=== PATIENT | male | born 1960 | race African-American/Black ===

== ENCOUNTER 2020-11-06 15:41 | Emergency (ER) | payer BC, SELFPAY ==
[2020-11-06 15:52] VITALS: BP 158/95; PULSE 79; RESP 20; TEMP 36.9; O2SAT 98
--- NOTE | 2020-11-06 16:03 | ED.MALEGU ---
HPI - Male Genitourinary General Chief complaint: Abdominal Pain Stated complaint: abd pain Time Seen by Provider: 11/06/20 16:03 Source: patient Mode of arrival: ambulatory Limitations: no limitations History of Present Illness HPI Narrative: Wade Rader is a 60 yo with a PMH of HTN, asthma, with a complaint of dysuria. Is on BP meds but not drinking water because of urination at work. His PCP ordered tests for Monday for bladder and liver; denies present R sided flank pain. Afraid may be due to 2 covid shots he received. Also was constipated but took laxative last night and had a bowel movement that was normal. Related Data Home Medications Medication Instructions Recorded Confirmed Aspir-81 11/06/20 Norvasc 11/06/20 Water Pill 11/06/20 albuterol 11/06/20 amlodipine 11/06/20 potassium 11/06/20 Allergies Allergy/AdvReac Type Severity Reaction Status Date / Time No Known Allergies Allergy Verified 11/06/20 15:46 Review of Systems Review of Systems: Narrative: CONSTITUTIONAL: Denies fever, chills, sweats. EYES: Denies visual changes, redness, discharge. ENT: Denies rhinorrhea, congestion, sore throat, otalgia. CARDIOVASCULAR: Denies chest pain, palpitations, edema. RESPIRATORY: Denies dyspnea, wheezing, cough GASTROINTESTINAL: Denies abdominal pain, nausea, vomiting, diarrhea. GENITOURINARY: Has dysuria, no hematuria, abnormal discharge SKIN: Denies rash or itching. NEUROLOGIC: Denies numbness, or focal weakness. PSYCHIATRIC: Denies anxiety or depression. PMFSH Past Medical History Medical History Asthma HTN (hypertension) Social History Social History (Updated 11/06/20 @ 16:12 by Paloma Carrera CNP) Smoking status: Former smoker Comments At time of signature, I agree with nursing past medical, surgical, social and family history. There is no relevant family history pertinent to the presenting complaint. Exam Narrative: Exam Narrative: GENERAL: This is a well-nourished, well-developed patient, in mild distress. HEAD: normocephalic, atraumatic. EYES: PERRL. Sclera clear/white. Vision is grossly intact. EARS: External ears normal, Hearing grossly intact. NOSE: External nose normal without nasal discharge, nares without redness, no rhinorrhea. THROAT: Mucous membranes moist, NECK: Neck supple, CARDIOVASCULAR: Regular rate and rhythm without murmurs, gallops, or rubs. RESPIRATORY: Clear to auscultation. Breath sounds equal bilaterally. No wheezes, rales, or rhonchi. GASTROINTESTINAL: Abdomen soft, no palpable flank pain SKIN: warm, intact with no suspicious lesions or rash, good texture and turgor. NEURO: awake, alert, and oriented to person, place and time. There were no obvious focal neurologic abnormalities. Steady gait EXTREMITIES: Normal range of motion. BACK: Nontender without deformity Course Course Emergency Course: Patient comes to [facility] with complaints of dysuria he is not drinking much water because of his job and he is having to urinate all the time his PCP is well aware and plans to test with him on Monday in both the PCP and I have told him that he needs to increase his water intake because his ketones in his urine UA was positive for protein and ketones Treating with Cipro for [id number] with PCP on Monday Vital Signs Vital signs: Vital Signs Temperature 98.4 F 11/06/20 15:52 Pulse Rate 79 11/06/20 15:52 Respiratory Rate 20 11/06/20 15:52 Blood Pressure 158/95 H 11/06/20 15:52 Pulse Oximetry 98 11/06/20 15:52 Temperature 98.4 F 11/06/20 16:10 Pulse Rate 79 11/06/20 16:10 Respiratory Rate 20 11/06/20 16:10 Blood Pressure 158/95 H 11/06/20 16:10 Pulse Oximetry 98 11/06/20 16:10 MDM - Male Genitourinary Differential Diagnosis Differential diagnosis: Likely urinary tract infection, urethritis, prostatitis, acute retention of urine and other (Dysuria) La
[2020-11-06 16:10] VITALS: BP 158/95; PULSE 79; RESP 20; TEMP 36.9; O2SAT 98
== END 2020-11-06 16:28 | disposition home or self-care (01) ==
PROVIDERS: Emergency Provider Nurse Practitioner
DX: R30.0 Dysuria (principal); Z87.891 Personal history of nicotine dependence; J45.909 Unspecified asthma, uncomplicated; I10 Essential (primary) hypertension
CPT/HCPCS: 81003; 99203; G0463

== ENCOUNTER 2021-12-04 20:16 | Emergency (ER) | payer OTHER, SELFPAY ==
[2021-12-04 20:25] VITALS: BP 187/93; PULSE 107; RESP 17; TEMP 37.1; O2SAT 99
--- NOTE | 2021-12-04 21:01 | ED.EPISTAXIS ---
HPI - Epistaxis General Chief complaint: Epistaxis Stated complaint: nosebleed Time Seen by Provider: 12/04/21 20:38 History of Present Illness HPI Narrative: 61-year-old male presents to the emergency room for evaluation of epistaxis to the left nare. Patient states he was seen at urgent care at approximately 4:00 this afternoon for left nare epistaxis. Patient states at that time they gave him Afrin, which stopped the nosebleed. Patient states that approximately 830 the nose began bleeding again. Patient states he is on a baby aspirin daily. Patient denies any injury or trauma. Patient states he has not taken his blood pressure medicine this evening because of the nosebleed. Denies any nausea or vomiting. Related Data Home Medications Medication Instructions Recorded Confirmed Aspir-81 11/06/20 Norvasc 11/06/20 Water Pill 11/06/20 albuterol 11/06/20 amlodipine 11/06/20 potassium 11/06/20 Allergies Allergy/AdvReac Type Severity Reaction Status Date / Time No Known Allergies Allergy Verified 11/06/20 15:46 Review of Systems Review of Systems: CONSTITUTIONAL: Denies fever, chills, or sweats. EYES: Denies visual changes, redness, or discharge. ENT: Reports epistaxis left nare CARDIOVASCULAR: Denies chest pain, palpitations, or edema. RESPIRATORY: Denies cough or dyspnea. GASTROINTESTINAL: Denies abdominal pain, nausea, vomiting, or diarrhea. GENITOURINARY: Denies dysuria or hematuria. SKIN: Denies rash or itching. MUSCULOSKELETAL: Denies back pain, joint pain, or myalgia. NEUROLOGIC: Denies headache, numbness, dizziness, or weakness. PSYCHIATRIC: Denies anxiety or depression. PMFSH Past Medical History Medical History Asthma HTN (hypertension) Social History Social History Smoking status: Former smoker Exam Narrative: GENERAL: Well-appearing, well-nourished, and in no acute distress. HEAD: Normocephalic, atraumatic. EYES: PERRLA and EOMI. ENT: Epistaxis controlled in left nare CHEST: Clear to auscultation. No respiratory distress. No wheezes rales or rhonchi HEART: Regular rate and rhythm. No murmur heard. Normal peripheral pulses. EXTREMITIES: Normal range of motion. No edema. SKIN: Warm, dry, no rash. NEURO: No focal deficits. Alert and oriented x3. PSYCH: Normal mood and affect. Course Vital Signs Vital signs: Vital Signs Temperature 37.1 C 12/04/21 20:25 Pulse Rate 107 H 12/04/21 20:25 Respiratory Rate 17 12/04/21 20:25 Blood Pressure 187/93 H 12/04/21 20:25 Pulse Oximetry 99 12/04/21 20:25 Temperature 37.1 C 12/04/21 20:25 Pulse Rate 71 12/04/21 22:18 Respiratory Rate 18 12/04/21 22:18 Blood Pressure 168/96 H 12/04/21 22:18 Pulse Oximetry 98 12/04/21 22:18 MDM - Epistaxis MDM Narrative Medical decision making narrative: 61-year-old male presented to the emergency room for evaluation of epistaxis for the second time today. Patient was already seen at urgent care several hours prior to arrival and was given Afrin. Patient nosebleed stopped after the administration of Afrin. Patient return to the emergency room for epistaxis in his left nare. Patient's bleeding was controlled with direct pressure. Patient was told to blow his nose and Afrin was again administered. Patient has been free of epistaxis since administration of Afrin which was approximately 2100. CBC and coags are within normal limits. Lab Data Result diagrams: 12/04/21 21:39 Labs: Lab Results 12/04/21 12/04/21 Range/Units 21:39 21:39 WBC 6.1 (4.5-10.0) K/mm3 RBC 5.16 (4.6-6.20) M/mm3 Hgb 15.5 (14.0-18.0) g/dL Hct 47.6 (42.0-52.0) % MCV 92.2 (80-100) fl MCH 30.0 (26-34) pg MCHC 32.6 (32-36) g/dl RDW 13.8 (11.5-14.5) % Plt Count 280 (150-375) k/mm3 MPV 9.5 (7.4-10.4) fl Immature Gran % (Aut
[2021-12-04] MEDS: amLODIPine BESYLATE 5 MG TABLET 10 MG PO (21:10)
[2021-12-04] MEDS: OXYMETAZOLINE HCL 0.05% NAS 15 ML BTL (*BKC) 1 SPRAY NASAL (21:11)
[2021-12-04 21:13] VITALS: BP 161/95; PULSE 77; RESP 16; O2SAT 100
[2021-12-04 21:45] LABS: Basophils Absolute Auto 0.1 K/mm3 (0.0-0.1); Basophils Percent Auto 0.8 % (0.2-1.2); Eosinophils Percent Auto 0.7 % (0-4.4); Hematocrit 47.6 % (42.0-52.0); Hemoglobin 15.5 g/dL (14.0-18.0); Immature Granulocyte Absolute 0.01 K/mm3 (0.00-0.031); Immature Granulocyte Percent A 0.2 % (0-0.5); Lymphocytes Absolute Auto 0.68 K/mm3 (0.9-3.2); Lymphocytes Percent Auto 11.2 % (18.3-44.2); Mean Corpuscular HGB Conc 32.6 g/dl (32-36); Mean Corpuscular Volume 92.2 fl (80-100); Mean Platelet Volume 9.5 fl (7.4-10.4); Monocytes Absolute Auto 0.5 K/mm3 (0.1-0.6); Monocytes Percent Auto 7.6 % (2.6-8.5); Neutrophils Absolute Auto 4.8 K/mm3 (1.3-6.7); Neutrophils Percent Auto 79.5 % (45.5-73.1); Platelet Count Result 280 k/mm3 (150-375); Red Blood Count 5.16 M/mm3 (4.6-6.20); Red Cell Distribution Width 13.8 % (11.5-14.5); White Blood Count 6.1 K/mm3 (4.5-10.0)
[2021-12-04 21:54] LABS: INR 1.2; Prothrombin Time 14.4 Seconds (11.1-14.7)
[2021-12-04 21:55] LABS: Partial Thromboplastin Time 31.5 SECONDS (22.3-36.8)
[2021-12-04 22:18] VITALS: BP 168/96; PULSE 71; RESP 18; O2SAT 98
[2021-12-04 23:24] VITALS: BP 170/95; PULSE 77; RESP 18; O2SAT 100
== END 2021-12-04 23:25 | disposition home or self-care (01) ==
PROVIDERS: Emergency Provider Nurse Practitioner Family; PCP Internal Medicine
DX: R04.0 Epistaxis (principal); J45.909 Unspecified asthma, uncomplicated; I10 Essential (primary) hypertension
CPT/HCPCS: 36415; 85025; 85610; 85730; 99283; A9270

== ENCOUNTER 2023-01-09 01:23 | Inpatient (IN) | payer BC, SELFPAY ==
[2023-01-09] VITALS (89 sets, daily range): BP systolic 78–131; BP diastolic 47–111; PULSE 10–143; RESP 17–36; TEMP 36.5–38.2; O2SAT 97–100
--- NOTE | ~2023-01-09 | XR_ITS ---
Portable chest x-ray Comparison: None Clinical History: Shortness of breath Findings: Endotracheal tube and NG tube are in satisfactory positions. There is extensive patchy, ramirez zy airspace disease. No pleural effusions. Cardiomediastinal silhouette is stable. Bones and soft ti ssues are unremarkable. Impression: Extensive airspace consolidation. Correlate for pulmonary edema versus pneumonia. Support tubes, as above. Reviewed, dictated and finalized at location . Impression: Extensive airspace consolidation. Correlate for pulmonary edema versus pneumoni a. Support tubes, as above.
--- NOTE | ~2023-01-09 | CT_ITS ---
CT Scan of the Chest without Contrast: Clinical Indication: Dyspnea Technique: Contiguous sections were acquired throughout the chest without intravenous contrast. Dose reduction technique was used on this scan by utilizing automated exposure control and iterative recon struction technique. The dose-length product (DLP) was 981.84 mGy-cm. Findings: There is no evidence of any significant mediastinal, hilar or axillary lymphadenopathy. Calcified med iastinal and hilar lymph nodes are present. Coronary artery calcifications are present. Endotracheal tube and NG tube are in place. There is no evidence of pleural or pericardial effusion. There is dense extensive dependent consolidation in the lower lobes bilaterally. There is patchy airs pace consolidation throughout the aerated lungs. Images through the upper abdomen reveal no abnormalities. Impression: Extensive dense bilateral lobe consolidation with patchy airspace consolidation in the remainder of t he aerated lungs. Diagnostic considerations include pulmonary edema and atelectasis versus pneumonia. Correlate clinically. Reviewed, dictated and finalized at [facility]. Impression: Extensive dense bilateral lobe consolidation with patchy airspace consolidation in the remainder of the aerated lungs. Diagnostic considerations include pulmo nary edema and atelectasis versus pneumonia. Correlate clinically.
--- NOTE | ~2023-01-09 | XR_ITS ---
Supine portable view of the abdomen Clinical history: NG tube placement Findings: NG tube is in satisfactory position. Bowel gas pattern is nonspecific. No evidence for obst ruction or free air. No abnormal mass lesion or calcification is seen. Osseous structures are intact. Impression: NG tube in satisfactory position. Reviewed, dictated and finalized at location . Impression: NG tube in satisfactory position.
--- NOTE | 2023-01-09 01:34 | ECG_ITS ---
Measurements Intervals [place] Rate: 116 P: [place]: 0 QRS: 145 QRSD: 162 T: 0 QT: 254 QTc: 353 Interpretive Statements ATRIAL FIBRILLATION WITH RAPID VENTRICULAR RESPONSE INTRAVENTRICULAR CONDUCTION DELAY ST-T WAVE ABNORMALITY IN ANTEROLAT/INF LEADS- CONSIDER ISCHEMIA BASELINE ARTIFACT- I, II, III, AVR, AVL, AVF ABNORMAL ECG NO PREVIOUS ECG AVAILABLE FOR COMPARISON Electronically Signed On 01-09-2023 7:03:59 CDT by Guillaume Moctezuma D.O.
[2023-01-09] MEDS: MIDAZOLAM HCL (*CRX) 2 MG/2 ML VIAL 4 MG (01:35)
--- NOTE | 2023-01-09 01:37 | ED.SOB ---
HPI - SOB/Dyspnea General Chief Complaint: Shortness of Breath/Dyspnea Stated Complaint: resp distress Time Seen by Provider: 01/09/23 01:26 Source: EMS Mode of arrival: EMS Limitations: clinical condition History of Present Illness HPI Narrative: 62 years old -[place] male went to his neighbor, knocked on the door telling them that he could not breathe then walked back to his home, EMT arrived, patient was sitting on the couch with agonal breathing then became unresponsive. Intubated, came to the emergency room no family member at the bedside, patient lives alone. According to old records patient have history of hypertension and asthma Related Data Home Medications Medication Instructions Recorded Confirmed Aspir-81 11/06/20 Norvasc 11/06/20 Water Pill 11/06/20 albuterol 11/06/20 amlodipine 11/06/20 potassium 11/06/20 Allergies Allergy/AdvReac Type Severity Reaction Status Date / Time No Known Allergies Allergy Verified 11/06/20 15:46 Review of Systems Review of Systems: ROS unobtainable: Yes unobtainable due to endotracheal tube PMFSH Past Medical History Medical History Asthma HTN (hypertension) Social History Social History Smoking status: Former smoker Exam Narrative: General appearance: Well-developed, well-nourished Skin: Normal color Head: Normocephalic, nontraumatic Eyes: Clear conjunctiva ENT: Oropharynx normal, ears normal, nose normal Neck: Supple, nontender Chest and respiratory: Airway patent, no respiratory distress, no accessory muscle use Heart: Regular rate/rhythm Abdomen: Soft, nontender, no organomegaly, quiet bowel sounds Vascular: Normal peripheral pulses, normal capillary refill. Musculoskeletal: Normal range of motion, nontender back Neurologic: Alert and oriented ?3, [employer] is normal as tested, no gross motor deficit Course Consultations Consultation #1: Dr. Gould, pediatric cns on-call EKG was text Wait for blood work-up, Date: 01/09/23 Time: 01:48 Consultation #2: Dr. Kirkland Date: 01/09/23 Time: 04:21 Consultation #3: Dr. Castro, hospitalist Date: 01/09/23 Time: 04:22 Vital Signs Vital signs: Vital Signs Temperature 36.5 C 01/09/23 01:23 Pulse Rate 101 H 01/09/23 01:23 Respiratory Rate 22 H 01/09/23 01:23 Blood Pressure 131/101 H 01/09/23 01:23 Pulse Oximetry 97 01/09/23 01:23 Oxygen Delivery Mechanical Ventilation 01/09/23 01:23 Temperature 36.9 C 01/09/23 03:15 Pulse Rate 89 01/09/23 04:16 Respiratory Rate 22 H 01/09/23 04:16 Blood Pressure 115/80 01/09/23 04:16 Pulse Oximetry 100 01/09/23 04:16 Oxygen Delivery Mechanical Ventilation 01/09/23 03:23 Fraction of Inspired Oxygen 100 01/09/23 02:03 MDM - SOB/Dyspnea MDM Narrative Medical decision making narrative: Patient came to the emergency room because of shortness of breath, agonal breathing and unresponsiveness, intubated at home prior to arrival to the emergency room. No family member at the bedside, patient lives alone. According to the old records that patient have history of asthma and hypertension. On arrival patient is unresponsive, intubated, blood pressure 131/101, heart rate 101, A-fib with RVR, no fever, respiratory rate 20/min. Physical exam showed poor air entry bilaterally, EKG showed A-fib with RVR, interventricular conduction delay, ST elevation in aVR, diffuse ST depression, global ischemia is a possibility discussed with Dr. Fan who requested to start patient on heparin. And aspirin rectally possible cardiac catheterization in the mo
[2023-01-09] MEDS: PROPOFOL IV EMULSION 100 ML 3.56 MG IV CONT (01:38)
[2023-01-09] MEDS: SODIUM CHLORIDE 0.9% IV 1,000 ML 999 ML IV CONT ×2 (01:43→05:00)
[2023-01-09 01:47] LABS: Alveolar/Arterial O2 Gradient 496.9 mmHg; Base Excess ABG -19.1 mEq/l (+/-2.0); Fractional Inspired Oxygen 100 %; HCO3 ABG 13.5 mEq/l (22.0-26.0); Oxygen Content ABG 22.5 %vol (16.0-22.0); Oxygen Saturation ABG 97.7 % (95.0-100.0); Oxyhemoglobin 96.4 % THb (90.0-100.0); PO2 ABG 155.5 mmHg (80.0-100.0); PO2 FiO2 Ratio Arterial Blood 1.55 %; Total Hemoglobin 16.4 g/dL (12.0-18.0)
[2023-01-09 01:48] LABS: Basophils Absolute Auto 0.1 K/mm3 (0.0-0.1); Basophils Percent Auto 1.1 % (0.2-1.2); Eosinophils Absolute Auto 0.2 K/mm3 (0-0.3); Eosinophils Percent Auto 2.2 % (0-4.4); Hematocrit 54.1 % (42.0-52.0); Immature Granulocyte Absolute 0.62 K/mm3 (0.00-0.031); Immature Granulocyte Percent A 5.8 % (0-0.5); Lymphocytes Absolute Auto 4.77 K/mm3 (0.9-3.2); Lymphocytes Percent Auto 44.7 % (18.3-44.2); Mean Corpuscular HGB Conc 29.6 g/dl (32-36); Mean Corpuscular Volume 101.5 fl (80-100); Monocytes Absolute Auto 0.9 K/mm3 (0.1-0.6); Monocytes Percent Auto 8.1 % (2.6-8.5); Neutrophils Absolute Auto 4.1 K/mm3 (1.3-6.7); Neutrophils Percent Auto 38.1 % (45.5-73.1); Red Blood Count 5.33 M/mm3 (4.6-6.20); Red Cell Distribution Width 13.7 % (11.5-14.5); White Blood Count 10.7 K/mm3 (4.5-10.0)
[2023-01-09 01:48] LABS: Modified Allen's Test Pass; PCO2 ABG 60.6 mmHg (35.0-45.0); Site Drawn RIGHT RADIAL; pH ABG 6.966 (7.350-7.450)
[2023-01-09 01:49] LABS: Device AMBU BAG
[2023-01-09 01:59] LABS: INR 1.2; Prothrombin Time 16.2 Seconds (11.1-14.7)
[2023-01-09 02:00] LABS: Partial Thromboplastin Time 35.7 SECONDS (22.3-36.8)
[2023-01-09 02:01] LABS: Alanine Aminotransferase 167 U/L (6-50); Albumin Level 4.3 g/dL (3.5-5.1); Alkaline Phosphatase 74 U/L (38-126); Anion Gap 28 mmol/L (8-16); Aspartate Amino Transferase 243 U/L (17-59); Bilirubin,Total 0.9 mg/dL (0.2-1.3); Blood Urea Nitrogen 13 mg/dL (9-20); Calcium 8.3 mg/dL (8.4-10.2); Carbon Dioxide 18 mmol/L (22-30); Chloride 98 mmol/L (98-107); Estimated CRCL calculation 51 ml/min; Estimated Glomerular Filt Rate 46; Glucose 267 mg/dL (65-110); Magnesium 2.9 mg/dL (1.6-2.3); Sodium 144 mmol/L (137-145)
[2023-01-09 02:07] LABS: Platelet Estimate Adequate (Adequate); Schistocytes None Seen (NORMAL)
[2023-01-09 02:07] LABS: Amphetamine Screen Urine Negative (Negative); Barbiturate Screen Urine Negative (Negative); Benzodiazepines Screen Urine Negative (Negative); Cannabinoid Screen Urine Negative (Negative); Cocaine Screen Urine Negative (Negative); Methadone Screen Urine Negative (Negative); Opiate Screen Urine Negative (Negative); Phencyclidine Screen Urine Negative (Negative)
--- NOTE | 2023-01-09 02:09 | PC.NURSE ---
Pt bp dropped, EPR notified and new orders being placed.
[2023-01-09] MEDS: MIDAZOLAM 100MG/NS 100ML(*CRX) 100 MG/100 ML BAG IV CONT ×2 (02:12→14:33)
[2023-01-09 02:20] LABS: Lactic Acid Reflex 19.4 mmol/L (0.7-2.0)
[2023-01-09] MEDS: MIDAZOLAM HCL (*CRX) 2 MG/2 ML VIAL 4 MG IV PUSH ×3 (02:21→14:20)
[2023-01-09 02:23] LABS: NT Pro B Type Natriuretic Pept 358 pg/mL (19.9-100); Troponin I 0.069 ng/mL (0.000-0.034)
[2023-01-09] MEDS: FENTANYL 2,500MCG/NS250ML(*CRX 2,500 MCG/250 ML BAG IV CONT (02:31)
[2023-01-09 02:38] LABS: SARS-CoV-2 RNA PCR Negative (Negative)
--- NOTE | 2023-01-09 02:52 | ECG_ITS ---
Measurements Intervals [place] Rate: 123 P: [place]: 0 QRS: 156 QRSD: 157 T: 0 QT: 257 QTc: 369 Interpretive Statements ATRIAL FIBRILLATION WITH RAPID VENTRICULAR RESPONSE VENTRICULAR PREMATURE COMPLEX INTRAVENTRICULAR CONDUCTION DELAY ST-T WAVE ABNORMALITY IN DIFFUSE LEADS- CONSIDER ISCHEMIA ABNORMAL ECG COMPARED TO ECG 01/09/2023 01:33:47 ATRIAL FIBRILLATION NOW PRESENT Electronically Signed On 01-09-2023 7:01:05 CDT by Guillaume Moctezuma D.O.
--- NOTE | 2023-01-09 03:00 | PC.NURSE ---
Pt in CT with this RN, restless and notified paper stripper. DIANE to give 4mg IVP versed. Given at 0300.
--- NOTE | 2023-01-09 03:12 | ECG_ITS ---
Measurements Intervals [place] Rate: 96 P: 78 [place]: 206 QRS: 156 QRSD: 123 T: 63 QT: 374 QTc: 474 Interpretive Statements SINUS RHYTHM FREQUENT VENTRICULAR PREMATURE COMPLEXES INTRAVENTRICULAR CONDUCTION DELAY ST-T WAVE ABNORMALITY IN DIFFUSE LEADS- CONSIDER ISCHEMIA ABNORMAL ECG COMPARED TO ECG 01/09/2023 01:36:05 SINUS RHYTHM NOW PRESENT Electronically Signed On 01-09-2023 6:59:40 CDT by Guillaume Moctezuma D.O.
[2023-01-09] MEDS: PIPERACILLIN/TAZOBACTAM SOD 4.5 GM in SODIUM CHLORIDE 0.9% IV 100 ML 200 ML IVPB (03:14)
[2023-01-09] MEDS: POTASSIUM CHLORIDE INJ 40 MEQ in SODIUM CHLORIDE 0.9% IV 500 ML 130 MEQ IVPB (03:16)
[2023-01-09] MEDS: ASPIRIN 300 MG SUPPOSITORY RECTAL (04:05)
[2023-01-09] MEDS: levoFLOXacin 750 MG/D5W 150 ML 750 MG/150 ML BAG 100 MG IVPB (04:07)
[2023-01-09] MEDS: HEPARIN SOD/D5W 100 UNITS/ML 25,000 UNITS/250 ML BAG 10 UNITS IV CONT (04:13)
--- NOTE | 2023-01-09 04:50 | ECG_ITS ---
Measurements Intervals [place] Rate: 87 P: 75 [place]: 190 QRS: 103 QRSD: 103 T: 55 QT: 383 QTc: 462 Interpretive Statements SINUS RHYTHM RIGHT AXIS DEVIATION BORDERLINE ST-T WAVE ABNORMALITY- INF/LAT LEADS BASELINE ARTIFACT- V5 BORDERLINE ECG COMPARED TO ECG 01/09/2023 03:14:48 ST-T WAVE ABNORMALITY IMPROVED Electronically Signed On 01-09-2023 7:02:51 CDT by Guillaume Moctezuma D.O.
[2023-01-09 04:52] LABS: Reflex Lactic Acid Yes or No Add Lactic
--- NOTE | 2023-01-09 04:57 | PC.NURSE ---
Patients BP is 78/62, ERP notified, VORB to give 1L NS bolus.
[2023-01-09 05:13] LABS: Alveolar/Arterial O2 Gradient 449.2 mmHg; Base Excess ABG -3.5 mEq/l (+/-2.0); Fractional Inspired Oxygen 100 %; HCO3 ABG 23.5 mEq/l (22.0-26.0); Oxygen Content ABG 21.7 %vol (16.0-22.0); Oxygen Saturation ABG 99.3 % (95.0-100.0); Oxyhemoglobin 97.8 % THb (90.0-100.0); PCO2 ABG 49.6 mmHg (35.0-45.0); PO2 ABG 214.2 mmHg (80.0-100.0); PO2 FiO2 Ratio Arterial Blood 2.14 %; Total Hemoglobin 15.5 g/dL (12.0-18.0)
[2023-01-09 05:14] LABS: Arterial Blood Gas PEEP 5 cmH2O; Arterial Blood Gas Vent Mode CMV; Arterial Blood Gas Ventilator rate 20 /MIN; Device VENTILATOR; Modified Allen's Test Pass; Site Drawn RIGHT RADIAL; pH ABG 7.294 (7.350-7.450)
[2023-01-09 05:15] LABS: Arterial Blood Gas Tidal Volume 500 ml
--- NOTE | 2023-01-09 05:20 | PC.NURSE ---
Attempted to call patients , number in chart, no answer so message was left.
--- NOTE | 2023-01-09 05:30 | PC.NURSE ---
0524 Report called to LUCINDA Tomlin. Awaiting for laboratory animal facility supervisor to arrive to take patient.
[2023-01-09] MEDS: VANCOMYCIN 1,250 MG/NS 250 ML 1,250 MG/250 ML BAG 166.67 MG IVPB ×2 (05:37→08:11)
--- NOTE | 2023-01-09 06:02 | PC.NURSE ---
0581 [employer]orer [employer] arrives to transport patient with this RN and respiratory.
--- NOTE | 2023-01-09 06:03 | PM.IMHP ---
H&P: HPI History of Present Illness Date/Time: Date of service 01/09/23 06:03 Chief Complaint: shortness of breath Narrative: 62-year-old patient who apparently experienced shortness of breath and went and knocked on his neighbor's door and called EMS who apparently Found in severe respiratory distress and intubated the patient. upon arrival to the emergency room lactic acid very high 19, severely acidotic. Initial troponin minimally elevated. His EKG showed atrial fibrillation with diffuse ST depressions and AVR elevation consistent with ischemia. x-ray showed pulmonary infiltrates. repeat EKG showed sinus rhythm and then the most recent EKG showed much improvement of ST segments depression but persistent AVR elevation. he was started aspirin in the emergency heparin drip. repeat troponins increased to 20. we decided to bring him here for cardiac catheterization to define coronary anatomy. Review of Systems Review of Systems: ROS unobtainable: Yes unobtainable due to endotracheal tube PMFSH Past Medical History Medical History Asthma HTN (hypertension) Social History Social History Smoking status: Former smoker Meds Home Medications and Allergies Home Medications Medication Instructions Recorded Confirmed Type Aspir-81 11/06/20 History Norvasc 11/06/20 History Water Pill 11/06/20 History albuterol 11/06/20 History amlodipine 11/06/20 History ciprofloxacin HCl 500 mg tablet 500 mg PO Q12H #14 tabs 11/06/20 Rx (Cipro) potassium 11/06/20 History Allergies Allergy/AdvReac Type Severity Reaction Status Date / Time No Known Allergies Allergy Verified 11/06/20 15:46 Vital Signs Vital Signs - 24 hr 01/09/23 01:23 01/09/23 01:38 01/09/23 01:52 Temperature 36.5 C Pulse Rate 101 H 114 H 113 H Respiratory Rate 22 H 23 H 24 H Blood Pressure 131/101 H Pulse Oximetry 97 Oxygen Delivery Mechanical Ventilation Fraction of Inspired Oxygen 01/09/23 01:55 01/09/23 01:32 01/09/23 01:34 Temperature Pulse Rate 131 H 109 H 113 H Respiratory Rate 26 H 26 H 28 H Blood Pressure 131/101 H Pulse Oximetry 98 100 Oxygen Delivery Fraction of Inspired Oxygen 01/09/23 01:45 01/09/23 01:46 01/09/23 02:03 Temperature Pulse Rate 141 H Respiratory Rate 23 H Blood Pressure 129/105 H Pulse Oximetry 100 Oxygen Delivery Mechanical Ventilation Fraction of Inspired Oxygen 100 01/09/23 02:03 01/09/23 01:47 01/09/23 02:00 Temperature Pulse Rate 99 143 H 102 H Respiratory Rate 22 H 22 H 23 H Blood Pressure Pulse Oximetry 97 100 Oxygen Delivery Fraction of Inspired Oxygen 01/09/23 02:02 01/09/23 02:09 01/09/23 02:12 Temperature Pulse Rate 101 H 101 H 98 Respiratory Rate 24 H 24 H 24 H Blood Pressure 88/47 L Pulse Oximetry 99 Oxygen Delivery Fraction of Inspired Oxygen 01/09/23 02:31 01/09/23 02:42 01/09/23 03:12 Temperature Pulse Rate 97 105 H 96 Respiratory Rate 31 H 27 H 24 H Blood Pressure Pulse Oximetry Oxygen Delivery Fraction of Inspired Oxygen 01/09/23 03:12 01/09/23 03:21 01/09/23 02:03 Temperature Pulse Rate 93 99 Respiratory Rate 29 H 23 H Blood Pressure 106/64 Pulse Oximetry 99 Oxygen Delivery Fraction of Inspired Oxygen 01/09/23 02:04 01/09/23 02:06 01/09/23 02:10 Temperature Pulse Rate 99 99 101 H Respiratory Rate 24 H 22 H 25 H Blood Pressure 88/47 L 78/56 L 79/50 L Pulse Oximetry 100 98 99 Oxygen Delivery Fraction of Inspired Oxygen 01/09/23 02:13 01/09/23 02:15 01/09/23 02:24 Temperature Pulse Rate 102 H 101 H 98 Respiratory Rate 30 H 27 H 24 H Blood Pressure 83/60 L 84/63 L Pulse Oximetry 99 100 Oxygen Delivery Fraction of Inspired Oxygen 01/09/23 02:28 01/09/23 02:30 01/09/23 02:31 Temperature Pu
--- NOTE | 2023-01-09 06:14 | WPDMODSED ---
Moderate Sedation Note-Pt Data Patient Data Diagnosis: elevated troponins Present Complaint: shortness of breath Procedure to be performed/Plan: coronary angiogram Allergies Allergy/AdvReac Type Severity Reaction Status Date / Time No Known Allergies Allergy Verified 11/06/20 15:46 Home Medications Medication Instructions Recorded Confirmed Type Aspir-81 11/06/20 History Norvasc 11/06/20 History Water Pill 11/06/20 History albuterol 11/06/20 History amlodipine 11/06/20 History ciprofloxacin HCl 500 mg tablet 500 mg PO Q12H #14 tabs 11/06/20 Rx (Cipro) potassium 11/06/20 History Current Medications: Active Medications Heparin Sodium (Porcine) (Heparin Sodium 5,000 Units/Ml Vial) 4,000 units IV PUSH PRN PRN PRN Reason: aPTT 55 - 70 seconds Heparin Sodium (Porcine) (Heparin Sodium 5,000 Units/Ml Vial) 4,000 units IV PUSH PRN PRN PRN Reason: aPTT less than 55 seconds Propofol (Diprivan) 100 mls @ 0 mls/hr IV CONT .Q0M [facility] Last Infusion: 01/09/23 02:09 Dose: 0 mcg/kg/min, 0 mls/hr Piperacillin Sod/Tazobactam (Sod 4.5 gm/ Sodium Chloride) 100 mls @ 200 mls/hr IVPB Q6H [facility] Last Infusion: 01/09/23 04:06 Dose: Infused Levofloxacin/Dextrose (Levaquin 750 Mg/D5w 150 Ml) 750 mg in 150 mls @ 100 mls/hr IVPB Q24H [facility] Last Infusion: 01/09/23 05:36 Dose: Infused Midazolam HCl (Versed 100 Mg/Ns 100 Ml) 100 mg in 100 mls @ 4 mls/hr IV CONT .Q25H STA; Protocol Stop: 01/10/23 03:06 Last Titration: 01/09/23 04:11 Dose: 4 mg/hr, 4 mls/hr Vancomycin HCl (Vancomycin 1,250 Mg/Ns 250 Ml) 1,250 mg in 250 mls @ 166.667 mls/hr IVPB ONCE ONE Stop: 01/09/23 06:29 Last Admin: 01/09/23 05:37 Dose: 166.67 mls/hr Vancomycin HCl (Vancomycin 1,250 Mg/Ns 250 Ml) 1,250 mg in 250 mls @ 166.667 mls/hr IVPB ONCE ONE Stop: 01/09/23 07:59 Vancomycin HCl (Vancomycin 1,500 Mg/D5w 500 Ml) 1,500 mg in 500 mls @ 250 mls/hr IVPB Q24H KENNY Fentanyl Citrate (Fentanyl 2,500 Mcg/Ns 250 Ml) 2,500 mcg in 250 mls @ 12.5 mls/hr IV CONT .Q20H STA; Protocol Stop: 01/09/23 22:25 Last Titration: 01/09/23 04:12 Dose: 125 mcg/hr, 12.5 mls/hr Heparin Sodium/Dextrose (Heparin Sodium/D5w 100 Units/Ml) 25,000 units in 250 mls @ 10 mls/hr IV CONT .Q24H STA; Protocol Stop: 01/10/23 03:29 Last Admin: 01/09/23 04:13 Dose: 1,000 units/hr, 10 mls/hr Sodium Chloride (Normal Saline Iv) 1,000 mls @ 125 mls/hr IV CONT .Q8H KENNY Sedation/Anesthesia: No previous sedation/anesthesia problems (including family history). [facility] Past Medical History Medical History Asthma HTN (hypertension) Social History Social History Smoking status: Former smoker Mod Sed Physical Exam Physical Exam Pre Procedural Exam: Normal: Appearance, Eyes, Ears, Nose, Neck, Lungs, Heart Size, Heart Rate, Heart Rhythm, Abdomen, Liver, Kidneys, Spleen, Breasts, Genitalia, Extremities and Skin Hours since solid foods: 8 Hours since liquid intake: 8 Mallampati Classification: class 1 ( patient is intubated) Internal Medicine - PN: Obj Da Vital Signs Vital Signs: Vital Signs - 24 hr 01/09/23 01:23 01/09/23 01:38 01/09/23 01:52 Temperature 36.5 C Pulse Rate 101 H 114 H 113 H Respiratory Rate 22 H 23 H 24 H Blood Pressure 131/101 H Pulse Oximetry 97 Oxygen Delivery Mechanical Ventilation Fraction of Inspired Oxygen 01/09/23 01:55 01/09/23 01:32 01/09/23 01:34 Temperature Pulse Rate 131 H 109 H 113 H Respiratory Rate 26 H 26 H 28 H Blood Pressure 131/101 H Pulse Oximetry 98 100 Oxygen Delivery Fraction of Inspired Oxygen 01/09/23 01:45 01/09/23 01:46 01/09/23 02:03 Temperature Pulse Rate 141 H Respiratory Rate 23 H Blood Pressure 129/105 H Pulse Oximetry 100 Oxygen Delivery Mechanical Ventilation Fraction of Inspired Oxygen 100 01/09/23 02:03 01/09/23 01:47 01/09/23
--- NOTE | 2023-01-09 06:16 | WPDCARDPROC ---
Cardiac Cath Procedure Note Date of procedure:: 01/09/23 Performing physician:: Wilner Fan MD date of service 01/09/2023 Indication:: elevated troponins Brief clinical history:: ?62-year-old patient who apparently experienced shortness of breath and went and knocked on his neighbor's door and called EMS who apparently? Found in severe respiratory distress and intubated the patient. ?upon arrival to the emergency room lactic acid very high 19, severely acidotic.? Initial troponin minimally elevated.? His EKG showed atrial fibrillation with diffuse ST depressions and AVR elevation consistent with? ischemia. x-ray showed pulmonary infiltrates. ?repeat EKG showed sinus rhythm and then the most recent EKG showed much improvement of ST segments depression but persistent AVR elevation. he was started aspirin in the emergency heparin drip.? repeat troponins increased to 20. ?we decided to bring him here for cardiac catheterization to define coronary anatomy. Procedure Procedure performed:: patient is getting deep sedation because he is intubated 2-Selective left and right coronary angiogram. 3-Left heart catheterization with measurement of LVEDP and measurement of gradient across aortic valve. 4- LV angiogram. 5-Right common femoral arterial angiogram. 6- selective left common femoral arterial angiogram. 7- insertion of intra-aortic balloon pump for left common femoral artery Sedation/Medication given:: Moderate sedation. Access site:: Right common femoral artery. Estimated blood loss:: 10cc Procedure note:: After informed consent patient was brought in to laborer rags with the was draped and prepped in usual manner. Moderate sedation was given and the right groin was infiltrated using 1% lidocaine. Five Niuean sheath was obtained using micropuncture needle and the modified Seldinger technique. Selective left coronary angiogram was done using JL4 catheter with the tip of the catheter placed in the left main coronary artery. Selective right coronary angiogram was done using JR4 catheter with the tip of the catheter placed to the right coronary artery. After that 5 Niuean pigtail catheter was advanced across the aortic valve into the left ventricle with measurement of LVEDP and measurement of gradient across aortic valve. LV angiogram was done.Right common femoral arterial angiogram was done. Because of high bifurcation of the right common femoral artery left common femoral artery was accessed using micropuncture needle and modified Seldinger technique and 8 Niuean sheath was inserted. after the balloon pump was inserted and secured in place Findings:: 1- left coronary artery is a large artery that divides into large LAD, large circumflex artery. distal left main 99%. ELISEO flow 3 2- left anterior descending artery is a large artery that runs and wraps around the apex. no significant disease 3- leftcircumflex artery is a large artery. gives rise to large OM 1 proximally that has ostial 90%. large OM2 no significant disease and then [place] left circumflex artery in the mid segment 70% after that. 4- right coronary artery is Large and dominant. Proximal 90%. Right to right collaterals which makes me think that this is chronic occlusion. 5- LVEDP was 40mmhg and no gradient across aortic valve. 6- LV angiogram shows inferior wall hypokinesis, estimated ejection fraction 40% 6- opening arterial pressure was 100/60 and closing pressure was 100/70 7- right femoral artery angiogram shows no significant disease in the right common femoral artery. high bifurcation. 8- left common femoral artery angiogram shows no significant disease in left common femoral artery the catheter entered in the left common femoral artery. Conclusion:: Left main, 3 vessel disease. - elevated LVEDP - reduced ejection fraction Assessment and Plan Assessment and plan (1) NSTEMI (non-ST elevated myocardial infarction): Code(s): I21.4 - Non-ST elevation (NSTEMI) my
[2023-01-09 07:15] LABS: Activated Clotting Time 107 SEC (74-137)
--- NOTE | 2023-01-09 07:40 | PC.NURSE ---
This patient, Wade Rader, was admitted to Intensive Care Unit-1. Patient/family oriented to hospital policies and general routines including ID bracelet, bed and alarms, visiting hours, pain management, procedures, bathroom and other care routines, personal items, smoking policy, room service/diet, and visiting hours. Information on how to activate the Rapid Response Team has been discussed. Patient/Family are encouraged to report perceived risks to care and to ask questions if they do not understand what they are told or what they should do.
[2023-01-09 08:17] LABS: Alveolar/Arterial O2 Gradient 284.4 mmHg; Base Excess ABG -3.5 mEq/l (+/-2.0); Fractional Inspired Oxygen 60 %; HCO3 ABG 24.1 mEq/l (22.0-26.0); Oxyhemoglobin 94.3 % THb (90.0-100.0); PCO2 ABG 53.3 mmHg (35.0-45.0); PO2 ABG 84.8 mmHg (80.0-100.0); PO2 FiO2 Ratio Arterial Blood 1.41 %; Total Hemoglobin 16.6 g/dL (12.0-18.0)
[2023-01-09 08:18] LABS: Device VENTILATOR; Site Drawn ARTLINE; pH ABG 7.274 (7.350-7.450)
[2023-01-09 08:20] LABS: Arterial Blood Gas PEEP 5 cmH2O; Arterial Blood Gas Tidal Volume 500 ml; Arterial Blood Gas Vent Mode CMV; Arterial Blood Gas Ventilator rate 20 /MIN
[2023-01-09] MEDS: ALBUTEROL SULFATE NEB 2.5 MG/3 ML INH INHALATION (08:50)
[2023-01-09] MEDS: IPRATROPIUM BR 0.02% INH SOLN 0.5 MG/2.5 ML VIAL INHALATION (08:50)
[2023-01-09 08:58] LABS: Anion Gap 3 mmol/L (8-16); Blood Urea Nitrogen 16 mg/dL (9-20); Calcium 7.3 mg/dL (8.4-10.2); Carbon Dioxide 32 mmol/L (22-30); Chloride 107 mmol/L (98-107); Estimated CRCL calculation 54 ml/min; Estimated Glomerular Filt Rate 50; Glucose 111 mg/dL (65-110); Lactic Acid Reflex 2.7 mmol/L (0.7-2.0); Potassium 4.5 mmol/L (3.4-5.0); Sodium 142 mmol/L (137-145)
--- NOTE | 2023-01-09 09:09 | WPDCNINT ---
Assessment and Plan Assessment and plan (1) Acute respiratory failure: Code(s): J96.00 - Acute respiratory failure, unspecified whether with hypoxia or hypercapnia Status: Acute Assessment and Plan: Acute Respiratory failure secondary to congestive heart failure, ? aspiration pneumonia, asthma Continue full mechanical ventilation support to prevent hypoxemia/hypercarbia and end organ damage. ABG reviewed and will increase rate to 24 and increase PEEP to 8. Currently FiO2 has been weaned down to 50% CT chest reviewed Patient is wheezing on exam. This may be due to pulmonary edema but patient does have history asthma. I will order bronchodilator and a short course of Solu-Medrol CT suggest pneumonia which may be aspiration as patient had altered mental status and was asymptomatic last night. Blood and sputum cultures ordered. Vancomycin cefepime and Flagyl Weaning will depend on improvement in cardiac status Patient received IV fluids initially for treatment of sepsis. In light of congestive heart failure and possible pulmonary edema I will hold further IV fluids. (2) Asthma: Code(s): J45.909 - Unspecified asthma, uncomplicated Status: Acute Assessment and Plan: See above (3) NSTEMI (non-ST elevated myocardial infarction): Code(s): I21.4 - Non-ST elevation (NSTEMI) myocardial infarction Status: Acute Assessment and Plan: Status post cardiac catheterization which showed multivessel coronary disease EF of 40% with inferior wall hypokinesis and LVEDP of 40 Patient had intra-aortic balloon pump placed during cardiac catheterization but the machine malfunction and had to be removed Continue aspirin and heparin infusion Patient is being transferred to [facility] for evaluation for CABG Will defer further evaluation and treatment to the accepting hospital Hold further IV fluids (4) Pneumonia: Qualifiers: Laterality: bilateral Lung location: unspecified part of lung Pneumonia type: due to unspecified organism Qualified Code(s): J18.9 - Pneumonia, unspecified organism Code(s): J18.9 - Pneumonia, unspecified organism Status: Acute Assessment and Plan: See above (5) Pulmonary edema: Code(s): J81.1 - Chronic pulmonary edema Status: Acute Assessment and Plan: See above (6) Electrolyte abnormality: Code(s): E87.8 - Other disorders of electrolyte and fluid balance, not elsewhere classified Status: Acute Assessment and Plan: Potassium has been replaced and repeat level is in normal range (7) Elevated serum creatinine: Code(s): R79.89 - Other specified abnormal findings of blood chemistry Status: Acute Assessment and Plan: Patient presented with creatinine of 1.8 and repeat is 1.7 Baseline unknown patient does have history of hypertension Patient is being transferred to [facility] and I will defer further evaluation and treatment at this time Patient did receive IV fluids in the ER. I will Hold further IV fluids due to congestive heart failure (8) Cardiogenic shock: Code(s): R57.0 - Cardiogenic shock Status: Acute Assessment and Plan: Patient had EF of 40% and LVEDP of 40 during cardiac catheterization IABP was placed the machine malfunction and had to be removed Patient also received fluid in the ER Lactic acid has improved from 19.4 on presentation to 2.7 at this time Pressure is acceptable at this time with map over 90 and patient is not requiring vasopressor. (9) Sepsis: Code(s): A41.9 - Sepsis, unspecified organism Status: Acute Assessment and Plan: Patient presented with elevated lactic acid level and also had evidence of pneumonia on the CT scan He received IV fluids in the ER but further fluids will be held due to congestive heart failure Check procalcitonin level Check sputum and blood cultures Continue vancomycin cefepime and Flagyl to c
[2023-01-09 09:15] LABS: Troponin I > 80.000 ng/mL (0.000-0.034)
[2023-01-09 09:18] LABS: Procalcitonin 1.3 ng/mL
[2023-01-09] MEDS: PANTOPRAZOLE SODIUM IV 40 MG VIAL IV PUSH (09:51)
[2023-01-09] MEDS: methylPREDNISolone SOD SUCC 125 MG VIAL 60 MG IV PUSH (09:51)
[2023-01-09] MEDS: CEFEPIME 1 GM/NS 50 ML 1 GM/50 ML BAG IVPB (09:51)
[2023-01-09] MEDS: metroNIDAZOLE 500 MG/ISO 100ML 500 MG/100 ML BAG 100 MG IVPB (10:22)
[2023-01-09 11:08] LABS: Partial Thromboplastin Time 27.2 SECONDS (22.3-36.8)
[2023-01-09 11:23] LABS: Troponin I > 80.000 ng/mL (0.000-0.034)
[2023-01-09 12:06] LABS: Glucose Point of Care 111 mg/dl (65-105)
--- NOTE | 2023-02-20 12:01 | PM.TDS ---
Transfer Discharge Sum: Prov Provider Date of admission: 01/09/23 07:51 Primary care physician: Tamika Rteana, Admitting clinician: jill fan Attending physician on admission: Jill Fan Consults: 01/09/23 03:44 Consult to Physician Routine Comment: Consulting Provider: Domenic Kirkland Reason for consultation: Pneumonia, acute coronary syndrome, dehydration, Has provider been notified: Yes Attending physician on discharge: Jill Fan Discharging clinician: Jill Fan Anticipated date of transfer: 01/09/23 Receiving physician/facility: [facility] DS: Admitting Diagnosis Discharge Date 01/09/23 Admitting Diagnosis NSTEMI DS: Discharge Diagnosis Discharge Diagnosis (1) Acute respiratory failure: Code(s): J96.00 - Acute respiratory failure, unspecified whether with hypoxia or hypercapnia Status: Acute Assessment and Plan: Secondary to LV dysfunction and severe 3 vessel disease and left main disease. Continue respiratory support on ventilator. (2) Pulmonary edema: Code(s): J81.1 - Chronic pulmonary edema Status: Acute Assessment and Plan: Secondary to LV dysfunction and severe 3 vessel disease and left main disease. Continue respiratory support on ventilator. (3) NSTEMI (non-ST elevated myocardial infarction): Code(s): I21.4 - Non-ST elevation (NSTEMI) myocardial infarction Status: Acute Assessment and Plan: patient underwent cardiac catheterization that showed critical left main disease and three-vessel disease. Underwent intra-aortic balloon pump insertion which had to be removed because pump console stopped working and no replacement available. We will continue heparin. Discussed the case with CT surgery at [facility] and agreed to receive the patient. Transfer Discharge Sum: Med Medications Active and Home Medications: Home Medications albuterol sulfate 90 mcg/actuation aerosol inhaler 1 puff inhalation Q4H PRN Shortness Of Breath Or Wheezing 01/09/23 [History Confirmed 01/09/23] amlodipine 10 mg tablet 10 mg PO DAILY 01/09/23 [History Confirmed 01/09/23] aspirin 81 mg tablet 81 mg PO DAILY 01/09/23 [History Confirmed 01/09/23] olmesartan 40 mg-hydrochlorothiazide 25 mg tablet 1 tablet PO DAILY 01/09/23 [History Confirmed 01/09/23] omeprazole 20 mg capsule,delayed release 20 mg PO DAILY 01/09/23 [History Confirmed 01/09/23] potassium chloride 20 mEq tablet,extended release(part/cryst) (Klor-Con M) 20 meq PO DAILY 01/09/23 [History Confirmed 01/09/23] Transfer Discharge Sum: Hosp Hospital Course Hospital course: Wade Rader is a 63 year old male Who presented to [facility] severe respiratory distress. Apparently was intubated in the field and then transferred here to the emergency room. EKG showed ST depression and AVR elevation. Elevated troponins. Consistent with NSTEMI. Took the patient to lab nurse were found to have critical left main and three-vessel disease. Balloon pump was inserted. Patient transferred to ICU. Balloon pump console stopped working and had to remove the balloon pump. Patient was on ventilator. Discussed with CT surgery who agreed to receive the patient to get CABG. Time Spent with Patient Time attestation: Total time spent providing and/or coordinating transfer services: 80 Minutes Exam Const: Other: no acute distress HENMT: Face/Nose/Sinus: Normal nares present Eyes: Sclera: sclerae normal Neck: Thyroid: thyroid normal Resp: Other: crackles Cardio: Rate: regular rate Rhythm: regular rhythm GI: GI Palp: Yes Soft to palpation : Other: Elise catheter Skin: General skin exam: normal color Neuro: Other: intubated and sedated Extrem: Other: no edema Psych: Other: could not be assessed DS: Data Data Completed and Pending Completed studies during hospitalization: cardiac
== END 2023-01-09 14:43 | disposition short-term general hospital (02) | DRG 853 ==
LOC: ANHED 02:57 → ANHOUTPT 05:25 → ANHICU 07:53
PROVIDERS: Internal Medicine; Admitting Provider Internal Medicine; Emergency Provider Emergency Medicine; PCP Internal Medicine; Visit Provider Internal Medicine Cardiovascular Disease
PROC: 4A023N7 Measurement of Cardiac Sampling and Pressure, Left Heart, Percutaneous Approach (ICD-10-PCS; CPT 93452; principal; 2023-01-09 05:40)
PROC: 5A02210 Assistance with Cardiac Output using Balloon Pump, Continuous (ICD-10-PCS; 2023-01-09 05:40)
DX: A41.9 Sepsis, unspecified organism (principal); I21.4 Non-ST elevation (NSTEMI) myocardial infarction; J69.0 Pneumonitis due to inhalation of food and vomit; J18.9 Pneumonia, unspecified organism; J96.00 Acute respiratory failure, unspecified whether with hypoxia or hypercapnia; R57.0 Cardiogenic shock; E86.0 Dehydration; E87.6 Hypokalemia; I10 Essential (primary) hypertension; I48.91 Unspecified atrial fibrillation; J45.909 Unspecified asthma, uncomplicated; R94.31 Abnormal electrocardiogram [ECG] [EKG]; E87.8 Other disorders of electrolyte and fluid balance, not elsewhere classified
CPT/HCPCS: 33967; 36415; 36600; 51702; 71250; 80048; 80053; 80307; 82805; 82948; 83605; 83735; 83880; 84145; 84443; 84484; 85025; 85610; 85730; 87040; 87081; 87635; 93005; 93458; 94640; 96365; 96367; 96375; 96376; 99285; A9270; C1887; C1894; C9113; J0692; J1644; J1836; J1956; J2250; J2543; J2704; J2930; J3010; J3370; J3480; J7030; J7040

== ENCOUNTER 2024-04-02 20:27 | Emergency (ER) | payer BC, SELFPAY ==
--- NOTE | ~2024-04-02 | XR_ITS ---
Clinical Indication: Hypertension PA and lateral views of the chest: Comparison: 01/09/2023 Findings: Calcified right basilar granuloma noted. The lungs are otherwise clear, without evidence of focal consolidation or pleural effusion. Cardiomediastinal silhouette is stable, status post CABG. Bones and soft tissues are unremarkable. Impression: No acute abnormality. Status post CABG. Reviewed, dictated and finalized at location . Impression: No acute abnormality. Status post CABG.
--- NOTE | 2024-04-02 21:20 | PC.NURSE ---
2119-CALLED FOR PATIENT TO TRIAGE. NO ANSWER X 1.
[2024-04-02 21:37] VITALS: BP 169/87; PULSE 87; RESP 20; TEMP 37.2; O2SAT 100
[2024-04-02 23:56] VITALS: BP 162/102; PULSE 77; RESP 20; O2SAT 99
[2024-04-03 01:25] VITALS: PULSE 72
[2024-04-03 01:29] VITALS: BP 150/80; PULSE 93; RESP 15; O2SAT 99
[2024-04-03 01:31] LABS: Basophils Percent Auto 0.7 % (0.2-1.2); Eosinophils Percent Auto 0.2 % (0-4.4); Hematocrit 42.3 % (42.0-52.0); Hemoglobin 13.2 g/dL (14.0-18.0); Immature Granulocyte Absolute 0.02 K/mm3 (0.00-0.031); Immature Granulocyte Percent A 0.3 % (0-0.5); Lymphocytes Absolute Auto 0.86 K/mm3 (0.9-3.2); Lymphocytes Percent Auto 14.8 % (18.3-44.2); Mean Corpuscular HGB Conc 31.2 g/dl (32-36); Mean Corpuscular Hemoglobin 25.4 pg (26-34); Mean Corpuscular Volume 81.5 fl (80-100); Mean Platelet Volume 10.2 fl (7.4-10.4); Monocytes Absolute Auto 0.5 K/mm3 (0.1-0.6); Monocytes Percent Auto 8.8 % (2.6-8.5); Neutrophils Absolute Auto 4.4 K/mm3 (1.3-6.7); Neutrophils Percent Auto 75.2 % (45.5-73.1); Platelet Count Result 301 k/mm3 (150-375); Red Blood Count 5.19 M/mm3 (4.6-6.20); Red Cell Distribution Width 17.3 % (11.5-14.5); White Blood Count 5.8 K/mm3 (4.5-10.0)
[2024-04-03 01:41] LABS: Alanine Aminotransferase 53 U/L (6-50); Albumin Level 4.4 g/dL (3.5-5.1); Alkaline Phosphatase 96 U/L (38-126); Anion Gap 9 mmol/L (4-12); Aspartate Amino Transferase 50 U/L (17-59); Bilirubin,Total 1.4 mg/dL (0.2-1.3); Blood Urea Nitrogen 12 mg/dL (9-20); Calcium 8.7 mg/dL (8.4-10.2); Carbon Dioxide 30 mmol/L (22-30); Chloride 102 mmol/L (98-107); Estimated Glomerular Filt Rate > 60; Glucose 127 mg/dL (65-110); Potassium 3.7 mmol/L (3.4-5.0); Sodium 141 mmol/L (137-145)
[2024-04-03 01:43] LABS: INR 1.2; Partial Thromboplastin Time 33.8 Seconds (22.3-36.8); Prothrombin Time 15.4 Seconds (11.1-14.7)
[2024-04-03 02:25] LABS: NT Pro B Type Natriuretic Pept 1040 pg/mL (19.9-100); Troponin I 0.045 ng/mL (0.000-0.034)
--- NOTE | 2024-04-03 02:44 | ED.RECABL ---
HPI - Recheck/Abnormal Lab/Rx General Chief Complaint: Recheck/Abnormal Lab/Rx Stated Complaint: high blood pressure Time Seen by Provider: 04/03/24 00:38 Source: patient and family Mode of arrival: ambulatory Limitations: no limitations History of Present Illness HPI narrative: Patient is a 64-year-old male who presents to the ER after having a high blood pressure reading outside of the hospital. He reports he was feeling a little lightheaded and had a mild headache so he tried to go to Urgent Care but they were closed, so he walked across the street to the fire department so they could give do a BP reading. When patient arrived at critical access hospital department they told him his blood pressure was 200/100. He reports he had not taken his blood pressure medication yet today. The fire department advised him to either follow-up with his doctor or come to the ER. Patient drove himself to the ER for evaluation. He denies any chest pain, shortness a breast, other signs or symptoms of illness. Patient also reports his symptoms of lightheadedness and is slight headache have completely resolved. He usually takes his blood pressure medication in the morning but he did not take it this morning so he took it once he arrived in the ER around 5:00 p.m. Related Data Home Medications Medication Instructions Recorded Confirmed albuterol sulfate 90 mcg/actuation 1 puff inhalation Q4H PRN 01/09/23 03/21/24 aerosol inhaler Shortness Of Breath Or Wheezing amlodipine 10 mg tablet 10 mg PO DAILY 01/09/23 03/21/24 aspirin 81 mg tablet 81 mg PO DAILY 01/09/23 03/21/24 omeprazole 20 mg capsule,delayed 20 mg PO DAILY 01/09/23 03/21/24 release potassium chloride 20 mEq 20 meq PO DAILY 01/09/23 03/21/24 tablet,extended release(part/cryst) (Klor-Con M) budesonide-formoterol HFA 160 1 puff inhalation DAILY 03/21/24 03/21/24 mcg-4.5 mcg/actuation aerosol inhaler (Symbicort) metoprolol succinate 25 mg 25 mg PO HS 03/21/24 03/21/24 tablet,extended release 24 hr Allergies Allergy/AdvReac Type Severity Reaction Status Date / Time No Known Allergies Allergy Verified 04/02/24 21:44 Review of Systems Review of Systems: All systems reviewed & are unremarkable except as noted in HPI and below PMFSH Past Medical History Medical History Asthma HTN (hypertension) MISHEL (obstructive sleep apnea) Social History Social History Smoking status: Never smoker Alcohol intake: never Substance use: never Substance use type: does not use Living arrangements: with family Spiritual care concerns: No Exam Narrative: GENERAL: Well appearing, well-nourished, non-toxic, in no acute distress. HEAD: Normocephalic, atraumatic. NECK: Supple. No adenopathy, no masses. RESPIRATORY: Airway patent, respirations nonlabored. Clear to auscultation bilaterally, no rales, rhonchi, wheezing. CARDIOVASCULAR: Regular rate and rhythm without murmurs, rubs, or gallops. Peripheral pulses 2+ and equal bilaterally. Mild, non-pitting lower extremity edema. ABDOMINAL: Soft, nontender, nondistended, no hepatosplenomegaly. Normoactive BS. MUSCULOSKELETAL: Moves all extremities. Strength/ROM intact without gross deformities. SKIN: Warm, dry, normal color. No rashes. NEURO: A&O X3. Speech clear. Cranial nerves II-XII grossly intact. Steady gait. No ataxic movements. PSYCHIATRIC: Appropriate mood and affect. Normal interaction. Course Vital Signs Vital signs: Vital Signs Temperature 37.2 C 04/02/24 21:37 Pulse Rate 87 04/02/24 21:37 Respiratory Rate 20 04/02/24 21:37 Blood Pressure 169/87 H 04/02/24 21:37 Pulse Oximetry 100 04/02/24 21:37 Oxygen Delivery Room Air 04/02/24 21:37 Temperature 37.2 C 04/02/24 21:37 Pulse Rate 72 04/03/24 02:47 Respiratory Rate 13 04/03/24 02:47 Blood Pressure 132/78 04/03/24 02:47 Puls
[2024-04-03 02:47] VITALS: BP 132/78; PULSE 72; RESP 13; O2SAT 100
--- NOTE | 2024-04-03 03:02 | ECG_ITS ---
Test Date: 2024-04-03 03:11:34 Measurements Intervals Gypsy Rate: 67 P: 61 WA: 226 QRS: 80 QRSD: 113 T: -88 QT: 410 QTc: 436 Interpretive Statements SINUS RHYTHM WITH FIRST DEGREE AV BLOCK DELAYED PRECORDIAL R/S TRANSITION LEFT VENTRICULAR HYPERTROPHY WITH ST-T CHANGE ST-T WAVE ABNORMALITY IN INFERIOR LEADS- CONSIDER ISCHEMIA PEAKED T WAVES, CONSIDER HYPERKALEMIA BASELINE ARTIFACT- I, II, AVR, AVL ABNORMAL ECG No previous ECG available for comparison Electronically Signed On 04-03-2024 06:25:00 CDT by Guillaume Moctezuma D.O.
== END 2024-04-03 03:47 | disposition left against medical advice (07) ==
PROVIDERS: Emergency Medicine; Emergency Provider Registered Nurse; PCP Internal Medicine
DX: R94.31 Abnormal electrocardiogram [ECG] [EKG] (principal); I44.0 Atrioventricular block, first degree; I51.7 Cardiomegaly; R79.89 Other specified abnormal findings of blood chemistry; I10 Essential (primary) hypertension; J45.909 Unspecified asthma, uncomplicated; G47.33 Obstructive sleep apnea (adult) (pediatric); Z79.82 Long term (current) use of aspirin; Z79.899 Other long term (current) drug therapy
CPT/HCPCS: 36415; 71046; 80053; 83880; 84484; 85025; 85610; 85730; 93005; 99284

== ENCOUNTER 2024-04-17 02:09 | Day surgery (SDC) | payer BC, SELFPAY ==
[2024-03-21 15:19] VITALS: BMI 32.5
--- NOTE | 2024-04-15 10:08 | SUR.PREOP ---
Pt wanted Suprep/Goylete bowel prep. Order submitted to pt's pharmacy.
[2024-04-17 10:00] VITALS: BMI 32.9
--- NOTE | 2024-04-17 10:00 | WPDANESEPPF ---
Anes - Initial Pre Proc Eval Procedure: Operation Date: 04/17/24 11:00 Proposed Procedures p Screening Colonoscopy - Kike Loera MD Date/Time: 04/17/24 10:00 Surgeon: Kike Loera MD Pre Op Diagnosis: Neoplasm Screening Patient Data Age: 64 Gender: M Height: 1.75 m Weight: 100 kg Allergies Allergy/AdvReac Type Severity Reaction Status Date / Time No Known Allergies Allergy Verified 04/17/24 09:57 Home Medications Medication Instructions Recorded Confirmed Type albuterol sulfate 90 mcg/actuation 1 puff inhalation Q4H PRN 01/09/23 03/21/24 History aerosol inhaler Shortness Of Breath Or Wheezing amlodipine 10 mg tablet 10 mg PO DAILY 01/09/23 03/21/24 History aspirin 81 mg tablet 81 mg PO DAILY 01/09/23 03/21/24 History omeprazole 20 mg capsule,delayed 20 mg PO DAILY 01/09/23 03/21/24 History release potassium chloride 20 mEq 20 meq PO DAILY 01/09/23 03/21/24 History tablet,extended release(part/cryst) (Klor-Con M) budesonide-formoterol HFA 160 1 puff inhalation DAILY 03/21/24 03/21/24 History mcg-4.5 mcg/actuation aerosol inhaler (Symbicort) metoprolol succinate 25 mg 25 mg PO HS 03/21/24 03/21/24 History tablet,extended release 24 hr sodium,potassium,mag sulfates 17.5 See Rx Instructions .Route 04/15/24 Rx gram-3.13 gram-1.6 gram oral soln .COMPLEX #1 mL (Suprep Bowel Prep Kit) Patient hx anesthesia problems: none Family hx anesthesia problems: none Results Review: All pre-operative results and documents have been reviewed as part of the pre-operative evaluation. [facility] Past Medical History Medical History Asthma HTN (hypertension) MISHEL (obstructive sleep apnea) Social History Social History Smoking status: Never smoker Alcohol intake: never Substance use: never Substance use type: does not use Living arrangements: with family Spiritual care concerns: No Anes - Eval Final PreProcedure Day of Procedure 04/17/24 10:00 Patient weight: obese Heart: regular rate and rhythm Lungs: clear to auscultation Airway: Mallampati scale class II Neurological: alert and oriented Last oral intake: >/= 8 hours ASA classification: III Emergent: no Anesthetic plan: proceed Anesthesia type and monitoring: general GIVS and standard monitoring Results Review: All pre-operative results and documents have been reviewed as part of the pre-operative evaluation. Informed Consent: The patient's anesthetic plan and its attendant risks and benefits were discussed with the patient/family/POA. Questions were solicited and answers provided to the satisfaction of the patient/family/POA.
[2024-04-17 10:03] VITALS: BP 149/78; PULSE 65; RESP 18; TEMP 36.2; O2SAT 100
[2024-04-17] MEDS: LACTATED RINGERS 1,000 ML 150 ML IV CONT (10:04)
--- NOTE | 2024-04-17 10:53 | PM.HPGS ---
History of Present Illness History of Present Illness Consent: Risks, benefits, and alternatives have been discussed and questions answered. Patient agrees to proceed with procedure. Chief complaint: Neoplasm Screening Narrative: Wade Rader is a 64 year old male here for screening colonoscopy, last one ~ 5 years ago Review of Systems Review of Systems: All systems reviewed & are unremarkable except as noted in HPI and below PMFSH Past Medical History Medical History (Updated 04/17/24 @ 10:55 by Kike Loera MD) Asthma Colon cancer screening HTN (hypertension) MISHEL (obstructive sleep apnea) Social History Social History Smoking status: Never smoker Alcohol intake: never Substance use: never Substance use type: does not use Living arrangements: with family Spiritual care concerns: No Meds Home Medications and Allergies Home Medications Medication Instructions Recorded Confirmed Type albuterol sulfate 90 mcg/actuation 1 puff inhalation Q4H PRN 01/09/23 04/17/24 History aerosol inhaler Shortness Of Breath Or Wheezing amlodipine 10 mg tablet 10 mg PO DAILY 01/09/23 04/17/24 History aspirin 81 mg tablet 81 mg PO DAILY 01/09/23 04/17/24 History omeprazole 20 mg capsule,delayed 20 mg PO DAILY 01/09/23 04/17/24 History release potassium chloride 20 mEq 20 meq PO DAILY 01/09/23 04/17/24 History tablet,extended release(part/cryst) (Klor-Con M) budesonide-formoterol HFA 160 1 puff inhalation DAILY 03/21/24 04/17/24 History mcg-4.5 mcg/actuation aerosol inhaler (Symbicort) metoprolol succinate 25 mg 25 mg PO HS 03/21/24 04/17/24 History tablet,extended release 24 hr Allergies Allergy/AdvReac Type Severity Reaction Status Date / Time No Known Allergies Allergy Verified 04/17/24 09:57 Vital Signs Vital Signs - 24 hr 04/17/24 10:03 Temperature 97.2 F L Pulse Rate 65 Respiratory Rate 18 Blood Pressure 149/78 H Pulse Oximetry 100 Oxygen Delivery Room Air Exam Const: General: comfortable and no acute distress HENMT: Face/Nose/Sinus: Normal nares present Eyes: General: appearance normal, both eyes and all related structures Neck: Neck: no JVD Resp: Auscultation: clear to auscultation bilaterally Cardio: Rate: regular rate Rhythm: regular rhythm GI: Inspection: non-distended GI Palp: Yes Soft to palpation Skin: General skin exam: normal color Neuro: General: gait normal Speech: normal speech Extrem: General: normal to inspection Psych: Mental Status: mental status grossly normal Assessment and Plan Assessment and plan (1) Colon cancer screening: Code(s): Z12.11 - Encounter for screening for malignant neoplasm of colon Status: Acute Assessment and Plan: colonoscopy
[2024-04-17 11:18] VITALS: BP 99/42; PULSE 57; RESP 18; O2SAT 100
[2024-04-17 11:28] VITALS: BP 107/46; PULSE 62; RESP 20; O2SAT 100
[2024-04-17 11:38] VITALS: BP 106/65; PULSE 68; RESP 20; O2SAT 100
== END 2024-04-17 11:52 | disposition home or self-care (01) ==
PROVIDERS: PCP Internal Medicine; Visit Provider Internal Medicine Gastroenterology
PROC: 0DJD8ZZ Inspection of Lower Intestinal Tract, Via Natural or Artificial Opening Endoscopic (ICD-10-PCS; CPT 45378; principal; 2024-04-17 11:00)
DX: Z12.11 Encounter for screening for malignant neoplasm of colon (principal); K63.5 Polyp of colon; K64.8 Other hemorrhoids; K57.30 Diverticulosis of large intestine without perforation or abscess without bleeding; J45.909 Unspecified asthma, uncomplicated; I10 Essential (primary) hypertension; G47.33 Obstructive sleep apnea (adult) (pediatric); E66.9 Obesity, unspecified; Z68.32 Body mass index [BMI] 32.0-32.9, adult; Z79.51 Long term (current) use of inhaled steroids; Z79.82 Long term (current) use of aspirin
CPT/HCPCS: 45385; 88305; J2003; J2704; J7120

== ENCOUNTER 2025-07-08 13:04 | Outpatient (CLI) | payer BC, SELFPAY ==
--- OUTSIDE RECORDS SUMMARY | 2025-07-07 11:00 | XMS_ITS | Encounter Summary ---
Author Organization [facility] Healthcare Address [address] [place] [address] Care Team Providers Care Sharepoint Developer Name Role Phone Tamika Retana MD Primary Care Provider [phone] Darrick Goodwin MD Unavailable [phone] Wilner Fan MD Unavailable [phone] Reason for Visit * Reason Comments Cold Symptoms c/o wheezing, cough, sob x today. pt has a hx of asthma Encounter Details Date Type Department Care Team (Late st Contact Info) Description 07/07/2025 11:00 AM [employer] Office Visit [facility] [address] [place] [id number] Viri Watson MD [address] [place] [address] Acute bronchitis with asthma with acute exacerbation (Primary Dx); Acute cough; Wheezing Social History Tobacco Use Types Packs/Day Years Used Date Smoking Tobacco: Never Smokeless Tobacco: Never Alcohol Use Standard Drinks/Week Comments Never 0 (1 standard drink = 0.6 oz pur e alcohol) OASIS D0700: Social Isolation Answer Da te Recorded Frequency of experiencing loneliness or isolatio n Never 01/22/2023 Social Connection and Isolation Panel Answer Date Recorded In a typical week, how many times do you talk on the phone with family, friends, or neighbors? More than three times a week 01/12/2023 How often do you get togethe r with friends or relatives? More than three times a week 01/12/2023 Attends [employer] Not on file 01/12 Active Member of Clubs or Organizations Not on f ile 01/12/2023 Attends Club or Organization Meetings Not on cherry e 01/12/2023 Are you , , di vorced, , never , or living with a partner? 01/12/2023 Overall Financial Resource Strain (CARDIA) Answe r Date Recorded How hard is it for you to pa y for the very basics like food, housing, medical care, and heating? Not hard at all 01/12/2023 PHQ-2 Answer Date Recorded PHQ-2 Total Score (If total score is 3 or more points, staff should administer the PHQ-9) 0 04/03/2025 Hunger Vital Sign Answer Date Recorded Within the past 12 months, y ou worried that your food would run out before you got the money to buy more. Never true 01/13/20 23 Within the past 12 months, t he food you bought just didn't last and you didn't have money to get more. Never true 01/12/2023 PRAPARE - Transportation Answer Date Re corded In the past 12 months, has l ack of transportation kept you from medical appointments or from getting medications? No 12/2022 In the past 12 months, has l ack of transportation kept you from meetings, work, or from getting things needed for daily living? No 01/12/2023 Housing Stability Vital Sign Answer Raymond e Recorded In the last 12 months, was t here a time when you were not able to pay the mortgage or rent on time? No 01/12/2023 Number of Places Lived in the Last Year Not on f ile 01/12/2023 In the last 12 months, was t here a time when you did not have a steady place to sleep or slept in a intermediate (including now)? No 01/12/2023 AUDIT-C Answer Date Recorded Q1: How often do you have a drink containing alcohol? Never 04/03/2025 Q2: How many drinks containi ng alcohol do you have on a typical day when you are drinking? Patient does not drink Q3: How often do you have si x or more drinks on one occasion? Never 04/03/2025 Personal Safety Answer Date Recorded Have you ever been in or are you currently in a harmful physical or emotional relationship or is someone making you feel afraid or unsafe? Denies 01/13/2023 Sex and Gender Information Value Date Recorded Sex Assigned at Not on file Legal Sex Male 9:16 AM [employer] Gender Identity Not on file Sexual Orientation Not on file documented as of this encounter Last Filed Vital Signs Vital Sign Reading Time Taken Comments Blood Pressure - - Pulse 80 07/07/2025 11:05 AM [employer] Temperature 36.6 C (97.8 F) 07/07/2025 11:05 AM [employer]ER Respiratory Rate 20 07/07/2025 11:05 AM [employer]ER Oxygen Saturation 98% 07/07/2025 11:05 AM [employer]ER Inhaled Oxygen Concentration - - Weight 105.2 kg (232 lb) 07/07/2025 11:05 AM [employer] Height 175.3 cm (5' 9) 07/07/2025 11:05 AM [employer]ER Body Mass Index 34.26 07/07/2025 11:05 AM [employer]ER documented in this encounter Patient Instructions * Patient Instructions* Viri Watson MD - 07/07/2025 11:00 AM [employer] Use Prednisone as advised start tomorrow follow the direction on the package, you have diabetes monitor for blood sugar as it can raise your Blood sugar temporarily. Albuterol MDI as needed for sob and wheezing as needed Check x ray today as advised in the hospital and wait for result, we will call you with the result and we advise you on any change in treatment started today. Disposition Treatment plan including expectations, follow up, and return precautions discussed with patient/parent, verbalizes understanding. Medication dosage, use, and potential adverse reactions discussed with patient/parent. Advised to follow up with PCP if symptoms do not resolve as expected or sooner if condition worsens. Signs/symptoms warranting ER evaluation reviewed. Patient and/or guardian was given an opportunity to ask questions, questions answered. [employer] documented in this encounter Ordered Prescriptions Prescription Sig Dispense Quantity Refills Last Filled Start Date End Date albuterol HFA (PROVENTIL HFA,VENTOLIN HFA,PROAIR HFA) 90 mcg/actuation inhalerIndications :Acute bronchitis with asthma with acute exacerbation Inhale 2 puffs every 4 (four) hours as needed for wheezing or shortness of breath 6.7 each 1 07/07/2025 predniSONE (DELTASONE) 10 mg tabletIndications: Acute bronchitis with asthma with acute exacerbation Take 3 tabs days 1 & 2, 2 tabs days 3 & 4, 1 tab days 5-7. 13 tablet 07/07/2025 documented in this encounter Progress Notes * Viri Watson MD - 07/07/2025 11:00 AM CST Images from the original note were not included. [facility] Visit Subjective/Objective Patient ID: Wade Rader is a 65 y.o. male. Chief Complaint Cold Symptoms ( c/o wheezing, cough, sob x today. pt has a hx of asthma) HPI Patient with significant health conditions, asthma HTN, goes without using albuterol for yrs. here with productive cough, nasal congestion, chest congestion wheezing, sob could not sleep last night, took to ER yesterday diagnosed with FLU Denies fever, chills, nausea, vomiting, diarrhea, drooling, swollen neck glands, earache, headache,difficulty swallowing, chest pain. Denies GERD symptoms Taking OTC cold and cough medication without much relief Patient is well-appearing, ambulatory, VS reviewed stable Review of Systems Constitutional: Pt Alert NAD HENT: see HPI Respiratory: see HPI Cardiovascular: No chest pain or heart palpitations Gastrointestinal: No nausea or vomiting, Negative for abdominal pain, constipation, diarrhea and vomiting. Genitourinary: Negative for dysuria, frequency, flank pain and hematuria. Skin: No rash Neurological: Negative for dizziness, weakness and headaches. Physical Exam Pulse 80 Temp 36.6 ??C (97.8 ??F) (Temporal) Resp 20 Ht 175.3 cm (5' 9) Wt 105.2 kg (232 lb) SpO2 98% BMI 34.26 kg/m?? Nursing note reviewed. Nursing note reviewed. Constitutional: General: Pt not in acute distress. Appearance: Normal appearance. Pt. is not ill-appearing, toxic-appearing or diaphoretic. HENT: Right Ear: Tympanic membrane, ear canal and external ear normal. Left Ear: Tympanic membrane, ear canal and external ear normal. Nose: Nasal congestion, edematous erythematous inferior turbinate Throat: no erythema or swelling Mouth: Mucous membranes are moist. Pharynx: Oropharynx is clear. Eyes: Extraocular Movements: Extraocular movements intact. Conjunctiva/sclera: Conjunctivae normal. Pupils: Pupils are equal, round, and reactive to light. Cardiovascular: Rate and Rhythm: Normal rate and regular rhythm. Pulmonary: Effort: Pulmonary effort is normal. Breath sounds: Noted Bilateral Scattered wheezing, After neb treatment, patient Feeling better withimproved airflow, Lungs CTA, Normal breath sounds. Abdominal: General: Bowel sounds are normal. Palpations: Abdomen is soft, Non tender Skin: General: Skin is warm and dry, no rash Neurological: General: No focal deficit present. Mental Status: Patient is alert and oriented Assessment & Plan Acute bronchitis with asthma with acute exacerbation Check x ray today as advised in the hospital and wait for result, we will call you with the result and we advise you on any change in treatment started today. Orders: ipratropium-albuteroL (DUO-NEB) 0.5-2.5 mg/3 mL nebulizer solution 3 mL predniSONE (DELTASONE) tablet 40 mg predniSONE (DELTASONE) 10 mg tablet; Take 3 tabs days 1 & 2, 2 tabs days 3 & 4, 1 tab days 5-7. albuterol HFA (PROVENTIL HFA,VENTOLIN HFA,PROAIR HFA) 90 mcg/actuation inhaler; Inhale 2 puffs every 4 (four) hours as needed for wheezing or shortness of breath XR Chest PA Lateral 2 Views; Future Acute cough Orders: POC Influenza A/B, COVID-19 antigen XR Chest PA Lateral 2 Views; Future Covid - Negative FLU test - Negative Wheezing Use Prednisone as advised start tomorrow follow the direction on the package, you have diabetes monitor for blood sugar as it can raise your Blood sugar temporarily. Albuterol MDI as needed for sob and wheezing as needed Orders: XR Chest PA Lateral 2 Views; Future Recent Results (from the past 4 hours) POC Influenza A/B, COVID-19 antigen Collection Time: 07/07/25 11:44 AM Result Value Ref Range Influenza A Ag, POC Negative Negative Influenza B Ag, POC Negative Negative COVID-19 Ag POC Presumptive Negative Presumptive Negative, Invalid Disposition- Discussed medications dosages, usage & potential side effects. Risks and interactions reviewed with patient. Indications for testing reviewed. Patient has been instructed to follow up w PCP or go to ER for any signs or symptoms that are of concern or worsening. Patient verbalizes understanding. The patient was given the opportunity to ask all questions and to have all questions answered. Patient is in agreement with the plan of care Viri Watson MD [employer] documented in this encounter Plan of Treatment Scheduled Orders Name Type Priority Associated Diagnoses Orde r Schedule XR Chest PA Lateral 2 Views Imaging Schedule Routine, Read Routine (OP Routine) Acute bronchitis with asthma with acute exacerbation Acute cough Wheezing Expected: 07/07/2025, Expires: 07/07/2026 documented as of this encounter Procedures Procedure Name Priority Date/Time Associated Diagnosis Comments POC INFLUENZA A/B, COVID-19 ANTIGEN Routine 07/07/2025 11:44 AM [employer] Acute cough documented in this encounter Results * POC Influenza A/B, COVID-19 antigen (07/07/2025 11:44 AM [employer]ICER) Influenza A Ag, POC Negative Negative [facility] [place] Influenza B Ag, POC Negative Negative [facility] [place] COVID-19 Ag POC Presumptive Negative Presumptive Negative, Invalid [facility] [place] Nasopharyngeal 07/07/2025 11 :44 AM [employer] us Viri Watson MD POINT OF CARE TEST ORDERABLES F inal Result [facility] [address] [place] [address] documented in this encounter Visit Diagnoses Diagnosis Acute bronchitis with asthma with acute exacerbation- Primary Acute cough Wheezing documented in this encounter Administered Medications Inactive Administered Medications - up to 3 most recent administrations Medication Order MAR Action Action Date Dose Rate Site predniSONE (DELTASONE) tablet 40 mg 40 mg, oral, Once for Clinic-Administered Medication, On 07/07/25 at 1200, For 1 doseIndications:Acute bronchitis with asthma with acute exacerbation Given 07/07/2025 11:45 AM [employer]ER 40 mg Oral documented in this encounter Discontinued Medications Medication Sig Discontinue Reason Start Date End Da te albuterol HFA (PROVENTIL HFA,VENTOLIN HFA,PROAIR HFA) 90 mcg/actuation inhaler Inhale 2 puffs every 4 (four) hours as needed for wheezing or shortness of breath Reorder 04/03/2025 07/07/2025 documented as of this encounter Orders Medications Ordered That Tomer ht Not Have Been Administered Count Last Ordered Date First Ordered Date ipratropium-albuteroL (DUO-N EB) 0.5-2.5 mg/3 mL nebulizer solution 3 mL 1 07/07/2025 documented in this encounter Additional Health Concerns Infection Onset Date Last Indicated Resolved Time COVID: Suspected 07/07/2025 07/07/2025 07/07/2025 11:46 AM [employer] documented as of this encounter Care Teams Sharepoint Developer Relationship Specialty Start Date End Date Tamika Retana MD [address] [facility] [address] [place] [address] [place] [id number] PCP - General 08/20/18 Darrick Goodwin MD [address] [facility] [address] [place] [address] [place] [id number] Surgeon Cardiothoracic Surgery 01/17/23 Wilner Fan MD [facility] [id number] [address] Consulting Physician Interventional Cardiology 01/17/23 documented as of this encounter
--- NOTE | ~2025-07-08 | XR_ITS ---
EXAMINATION: XR chest 2V 07/08/2025 13:19 INDICATION: Acute bronchitis with asthma PROCEDURE: 2 view chest COMPARISON: 04/03/2024 FINDINGS: The lungs are clear. The cardiomediastinal silhouette is within normal limits. There are no pleural effusions. There is no pneumothorax suspected. Status post median sternotomy for CABG. IMPRESSION: 1: NO ACUTE CARDIOPULMONARY DISEASE. Reviewed, dictated and finalized at location O. LER OPERATOR
--- OUTSIDE RECORDS SUMMARY | 2025-07-08 13:25 | XMS_ITS | Clinical Summary ---
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 115.604.06 / / [employer] Screw Bone Slf Drl Full Thread Locking 3.5x16mm Ti 100.035.16 - [id number] Implanted:Qty: 10 on 01/11/2023 by Darrick Goodwin MD at [facility] Screw N/A: Sternum [employer] 100.035.16 / / [employer] Screw Bone Slf Drl Full Thread Locking 3.5x18mm Ti 100.035.18 - [id number] Implanted:Qty: 6 on 01/11/2023 by Darrick Goodwin MD at [facility] Screw N/A: Sternum [employer] 100.035.18 / / Procedures Procedure Name Priority Date/Time Associated Diagnosis Comments POC INFLUENZA A/B, COVID-19 ANTIGEN Routine 07/07/2025 11:44 AM SEASONAL DELIVERY DRIVER Acute cough MEASURE POST VOID RESIDUAL Routine 06/20/2025 11:22 AM SEASONAL DELIVERY DRIVER Elevated PSA POCT URINALYSIS DIPSTICK Routine 06/20/2025 11:21 AM SEASONAL DELIVERY DRIVER Elevated PSA COMPREHENSIVE METABOLIC PANEL Routine 04/05/2025 7:59 AM CDT Hyperglycemia HEMOGLOBIN A1C Routine 04/05/2025 7:59 AM CDT Hyperglycemia LIPID PANEL Routine 04/05/2025 7:59 AM CDT Dyslipidemia ALBUMIN CREATININE RATIO, URINE Routine 04/05/2025 7:59 AM CDT Hyperglycemia PSA SCREEN Routine 09/07/2024 7:35 AM SEASONAL DELIVERY DRIVER Elevated PSA COLONOSCOPY Routine 04/17/2024 11:28 AM CDT HM DIABETES EYE EXAM Routine 04/08/2024 2:43 PM CDT HEPATITIS C ANTIBODY Routine 10/17/2020 9:32 AM CDT Encounter for hepatitis C screening test for low risk patient from Last 3 Months or Most Recently Relevant to Health Maintenance Results * POC Influenza A/B, COVID-19 antigen (07/07/2025 11:44 AM SEASONAL DELIVERY DRIVER) Influenza A Ag, POC Negative Negative [facility] [place] Influenza B Ag, POC Negative Negative [facility] [place] COVID-19 Ag POC Presumptive Negative Presumptive Negative, Invalid [facility] Nasopharyngeal 07/07/2025 11 :44 AM SEASONAL DELIVERY DRIVER Viri Watson MD POINT OF CARE TEST ORDERABLES F inal Result Performing Organization Address City/State/[facility] Co de Phone Number [facility] [address] [place] [address] * Measure post void residual (06/20/2025 11:22 AM SEASONAL DELIVERY DRIVER) Narrative Marlin Campbell, LUCI - 06/20/2025 11:22 AM SEASONAL DELIVERY DRIVER Measurement of Post Void Residual urine and/or bladder capacity PVR = 1 ml Samir Perez VIROLOGY TEACHER NURSING ASSESSMENTS Final Res ult * (ABNORMAL) POCT urinalysis dipstick (06/20/2025 11:21 AM SEASONAL DELIVERY DRIVER) Color, Urine, POC Yellow Clarity, ur, POC Clear Clear Glucose, ur, POC Negative Negative Bilirubin, ur, POC 1+(A) Negative Ketones, ur, POC Negative Negative Specific [place], POC 1.025 1.003 - 1.030 Blood, ur, POC Negative Negative pH, ur, POC 6.0 5.0 - 8.0 Protein, ur, POC 1+(A) Negative Urobilinogen, urine, POC 0.2 0.2 - 1.0 mg/dL Nitrite, ur, POC Negative Negative Leukocytes, ur, POC Negative Negative Lot Number 0 Urine 06/20/2025 11:2 1 AM SEASONAL DELIVERY DRIVER Samir Perez NP POINT OF CARE TEST ORDERABLES Final Result * Albumin Creatinine Ratio, Urine (04/05/2025 7:59 AM CDT) Creatinine, ur 88 20 - 320 mg/dL [facility] Microalbumin, ur 0.5 See Note: mg/dL [facility] Comment: Reference Range: Reference Range Not established Microalbumin/creat ratio 6 <30 mg/g creat [facility] Comment: The ADA defines abnormalities in albumin excretion as follows: Albuminuria Category Result (mg/g creatinine) Normal to Mildly increased <30 Moderately increased 30-299 Severely increased > OR = 300 The ADA recommends that at least two of three specimens collected within a 3-6 month period be abnormal before considering a patient to be within a diagnostic category. Urine 04/05/2025 7:59 AM CDT 04/05/2025 8:01 AM CDT Tamika Retana MD LAB URINE ORDERABLES Final Result [facility] [address] [place] [address] * (ABNORMAL) Hemoglobin A1c (04/05/2025 7:59 AM CDT) Hgb A1C 6.0(H) <5.7 % of total Hgb [facility] Comment: For someone without known diabetes, a hemoglobin A1c value between 5.7% and 6.4% is consistent with prediabetes and should be confirmed with a follow-up test. For someone with known diabetes, a value <7% indicates that their diabetes is well controlled. A1c targets should be individualized based on duration of diabetes, age, comorbid conditions, and other considerations. This assay result is consistent with an increased risk of diabetes. Currently, no consensus exists regarding use of hemoglobin A1c for diagnosis of diabetes for children. Blood 04/05/2025 7:59 AM CDT 04/05/2025 8:01 AM CDT Tamika Retana MD LAB BLOOD ORDERABLES Final Result [facility] [address] [place] [address] * Lipid panel (04/05/2025 7:59 AM CDT) Cholesterol 80 <200 mg/dL [facility] HDL 40 > OR = 40 mg/dL [facility] Triglycerides 45 <150 mg/dL [facility] LDL 27 mg/dL (calc) [facility] Comment: Reference range: <100 Desirable range <100 mg/dL for primary prevention; <70 mg/dL for patients with CHD or diabetic patients with > or = 2 CHD risk factors. LDL-C is now calculated using the Fiorella calculation, which is a validated novel method providing better accuracy than the Friedewald equation in the estimation of LDL-C. Edward SS et al. RYAN. 2013;310(19): 4932-0958 (http://education.PhotoMania/faq/YIL911) Chol/HDL ratio 2.0 <5.0 (calc) [facility] Non-HDL, (LDL+VLDL) 40 <130 mg/dL (calc) [facility] Comment: For patients with diabetes plus 1 major ASCVD risk factor, treating to a non-HDL-C goal of <100 mg/dL (LDL-C of <70 mg/dL) is considered a therapeutic option. Blood 04/05/2025 7:59 AM CDT 04/05/2025 8:01 AM CDT Tamika Retana MD LAB BLOOD ORDERABLES Final Result [facility] [address] [place] [address] * (ABNORMAL) Comprehensive metabolic panel (04/05/2025 7:59 AM CDT) Glucose 91 65 - 99 mg/dL [facility] Comment: Fasting reference interval BUN 15 7 - 25 mg/dL [facility] Creatinine 1.13 0.70 - 1.35 mg/dL [facility] eGFR 72 > OR = 60 mL/min/1.7 3m2 [facility] BUN/creat ratio SEE NOTE: 6 - 22 (calc) [facility] Comment: Not Reported: BUN and Creatinine are within reference range. Sodium 143 135 - 146 mmol/L [facility] Potassium, pl 4.0 3.5 - 5.3 mmol/L [facility] Chloride 107 98 - 110 mmol/L [facility] CO2 31 20 - 32 mmol/L [facility] Calcium 9.2 8.6 - 10.3 mg/dL [facility] Protein, sr 7.2 6.1 - 8.1 g/dL [facility] Albumin 4.2 3.6 - 5.1 g/dL [facility] GLOBULIN 3.0 1.9 - 3.7 g/dL (calc) [facility] Alb/glob ratio 1.4 1.0 - 2.5 (calc) [facility] Bilirubin, total 1.7(H) 0.2 - 1.2 mg/dL [facility] Alk phos 91 35 - 144 U/L [facility] AST 38(H) 10 - 35 U/L [facility] ALT (SGPT) 39 9 - 46 U/L [facility] Blood 04/05/2025 7:59 AM CDT 04/05/2025 8:01 AM CDT us Tamika Retana MD LAB BLOOD ORDERABLES Final Result [facility] [address] [place] [address] * PSA screen (09/07/2024 7:35 AM SEASONAL DELIVERY DRIVER) PSA 1.77 < OR = 4.00 ng/mL [facility] Comment: The total PSA value from this assay system is standardized against the WHO standard. The test result will be approximately 20% lower when compared to the equimolar-standardized total PSA (Patricia Kareen). Comparison of serial PSA results should be interpreted with this fact in mind. This test was performed using the Siemens chemiluminescent method. Values obtained from different assay methods cannot be used interchangeably. PSA levels, regardless of value, should not be interpreted as absolute evidence of the presence or absence of disease. Blood 09/07/2024 7:35 AM SEASONAL DELIVERY DRIVER 09/07/2024 7:36 AM SEASONAL DELIVERY DRIVER Narrative [facility] - 09/08/2024 9:03 AM SEASONAL DELIVERY DRIVER FASTING:YES FASTING: YES Tamika Retana MD LAB BLOOD ORDERABLES Final Result [facility] [address] [place] [address] * Colonoscopy (04/17/2024 11:28 AM CDT) Anatomical Region Laterality Modality Other Historical Provider ENDOSCOPY PROCEDURES Mercedes l Result * DIABETES EYE EXAM (04/08/2024 2:43 PM CDT) SCRIBED DIABETIC DILATED EYE EXAM Normal Historical Provider HEALTH MAINTENANCE Final Result * Hepatitis C antibody (10/17/2020 9:32 AM CDT) Hep C Ab NON-REACTI VE NON-REACT TAN [facility] SIGNAL TO CUT-OFF 0.08 <1.00 [facility] Comment: HCV antibody was non-reactive. There is no laboratory evidence of HCV infection. In most cases, no further action is required. However, if recent HCV exposure is suspected, a test for HCV RNA (test code 05830) is suggested. For additional information please refer to http://education.Mango-Mate/faq/XZH43a4 (This link is being provided for informational/ educational purposes only.) Blood specimen (specimen) 10/17/2020 9:32 AM CDT 10/17/2020 9:34 AM CDT Narrative [facility] - 10/19/2020 11:01 AM CDT FASTING:YES FASTING: YES Tamika Retana MD LAB MICROBIOLOGY - GENERAL ORDERABLES Final Result [facility] [address] [place] [address] from Last 3 Months or Most Recently Relevant to Health Maintenance Insurance [employer] ACCESS BLUE ACCESS OOS Advance Directives For more information, please contact: [phone] Documents on File Type Date Recorded Patient Terminal Gauger Supervisor Expl anation ADVANCE DIRECTIVE 05/29/2023 9:57 AM * Full Code (Latest Code Status on File) Date Activated Date Inactivated Comments 01/09/2023 4:07 PM 01/17/2023 10:09 PM * Full Code Date Activated Date Inactivated Comments 01/09/2023 3:48 PM 01/09/2023 4:07 PM Care Teams Site Coordinator Relationship Specialty Start Date End Date Tamika Retana MD [address] [place] [address] PCP - General 08/20/18 Darrick Goodwin MD [address] [place] [address] Surgeon Cardiothoracic Surgery 01/17/23 Wilner Fan MD [facility] [address] [facility] [address] [address] Consulting Physician Interventional Cardiology 01/17/23
--- OUTSIDE RECORDS SUMMARY | 2025-07-08 13:25 | XMS_ITS | Encounter Summary ---
Author Organization [facility] Healthcare Address [address] [place] [address] Care Team Providers Care Kiln Fireman Name Role Phone Tamika Retana MD Primary Care Provider [phone] Darrick Goodwin MD Unavailable Wilenr Fan MD Unavailable [phone] Reason for Visit * Reason Onset Date Comments Congestion 07/07/2025 Cough 07/07/2025 Encounter Details Date Type Department Care Team (Late st Contact Info) Description 07/07/2025 Nurse Triage [facility] Internal Medicine [address] [place] [phone] Tamika Retana MD [address] [place] [address] Social History Tobacco Use Types Packs/Day Years [...] than three times a week 01/12/2023 Attends Buddhism Services Not on file 01/12 Active Member [...] place to sleep or slept in a prison (including now)? No 01/12/2023 AUDIT-C Answer Date [...] on file Legal Sex Male 9:16 AM INFORMATICS APPLICATION ANALYST Gender Identity Not on file Sexual Orientation Not on file documented as of this encounter Miscellaneous Notes * Telephone Encounter - Harlan Burton RN - 07/07/2025 7:18 AM INFORMATICS APPLICATION ANALYST Reason for Conversation Congestion and Cough Background Wade Rader Has c/o cough and congestion with clear mucus starting last night. Pt denies any difficulty breathing/SOBor wheezing at this time but states earlier this AM he had SOB. Pt states he called an ambulance and was given a breathing treatment with relief. Denies fever, CP, nausea/vomiting, diarrhea or rash. Has taken Coricidin and Mucinex. Discussed care advice and worsening signs and symptoms of condition on which to call back. Pt verbalizes understanding. No appts in office, appt scheduled at [facility]. Disposition See Physician Within 24 Hours Reason for Disposition [1] Continuous (nonstop) coughing interferes with work or school AND [2] no improvement using coughtreatment per Care Advice Protocols Used Cough - Acute Avhfoktzko-Qegty-QL RMATICS APPLICATION ANALYST * Telephone Encounter - Harlan Burton RN - 07/07/2025 7:08 AM INFORMATICS APPLICATION ANALYST Regarding: Cough, SOB, wheezing, chest congestion ----- Message from Carlos Alberto Ellis sent at 07/07/2025 7:08 AM INFORMATICS APPLICATION ANALYST ----- Chief Complaint: Cough, SOB, wheezing, chest congestion Duration: Today Call Back Number: [phone] Additional Details: Requesting antibiotics. Pt stated that he has Home Health and that they just left and told him to call for meds. RMATICS APPLICATION ANALYST documented in this encounter Plan of Treatment Not on file documented as of this encounter Visit Diagnoses Not on filedocumented in this encounter Care Teams Kiln Fireman Relationship Specialty Start Date End Date Tamika Retana MD [address] [place] [address] PCP - General 08/20/18 Darrick Goodwin MD [address] [place] [address] Surgeon Cardiothoracic Surgery 01/17/23 Wilner Fan MD [address] [place] [address] Consulting Physician Interventional Cardiology 01/17/23 documented as of this encounter
--- OUTSIDE RECORDS SUMMARY | 2025-07-08 13:25 | XMS_ITS | Encounter Summary ---
Author Organization [facility] Facility Care Team Providers Care Hand Laster Name Role Phone Tamika Retana MD Primary Care Provider [phone] Darrick Goodwin MD Unavailable [phone] Wilner Fan MD Unavailable + [phone] Eliza Meraz LPN Unavailable [phone] Encounter Details Date Type Department Care Team (Latest Contact Info) Description 06/13/2016 Orders Only [facility] Provider, MD Rk [address] [place] [address] Social History Tobacco Use Types Packs/Day Years Used Date Smoking Tobacco: Never Assessed Sex and Gender Information Value Date Recorded Sex Assigned at Not on file Legal Sex Male 9:16 AM PSYCHOLOGICAL OPERATIONS OFFICER Gender Identity Not on file Sexual Orientation Not on file documented as of this encounter Plan of Treatment Not on file documented as of this encounter Procedures Procedure Name Priority Date/Time Associated Diagnosis Comments PROCEDURE - RESULT 06/16/2016 12 :00 AM PSYCHOLOGICAL OPERATIONS OFFICER documented in this encounter Results * PROCEDURE - RESULT (06/16/2016 12:00 AM PSYCHOLOGICAL OPERATIONS OFFICER) Narrative 06/16/2016 12:00 AM PSYCHOLOGICAL OPERATIONS OFFICER Ordered by an unspecified provider. us Historical Provider Final Res ult documented in this encounter Visit Diagnoses Not on filedocumented in this encounter Additional Health Concerns Infection Onset Date Last Indicated Resolved Time COVID: Suspected 07/07/2025 07/07/2025 07/07/2025 11:46 AM PSYCHOLOGICAL OPERATIONS OFFICER documented as of this encounter Care Teams Hand Laster Relationship Specialty Start Date End Date Tamika Retana MD [address] [facility] [place] [address] PCP - General 08/20/18 Darrick Goodwin MD [address] [facility] [place] [address] Surgeon Cardiothoracic Surgery 01/17/23 Wilner Fan MD [facility] [address] [address] Consulting Physician Interventional Cardiology 01/17/23 Eliza Meraz, MIKE [address] [place] [address] [address] [place] [address] Bagging Machine Operator 01/18/23 01/18/23 documented as of this encounter
--- OUTSIDE RECORDS SUMMARY | 2025-07-08 13:25 | XMS_ITS | Encounter Summary ---
Author Organization [facility] Facility Care Team Providers Care Migratory Worker Name Role Phone Tamika Retana MD Primary Care Provider [phone] Darrick Goodwin MD Unavailable [phone] Wilner Fan MD Unavailable + [phone] Eliza Meraz LPN Unavailable [phone] Encounter Details Date Type Department Care Team (Latest Contact Info) Description 11/22/2016 Orders Only [facility]INCONV Provider, MD Rk [address] [place] [address] Social History Tobacco Use Types Packs/Day Years Used Date Smoking Tobacco: Never Assessed Sex and Gender Information Value Date Recorded Sex Assigned at Not on file Legal Sex Male 9:16 AM PROPERTY CARETAKER Gender Identity Not on file Sexual Orientation Not on file documented as of this encounter Plan of Treatment Not on file documented as of this encounter Procedures Procedure Name Priority Date/Time Associated Diagnosis Comments COLONOSCOPY - SCAN 11/22/2016 12 :00 AM CDT documented in this encounter Results * COLONOSCOPY - SCAN (11/22/2016 12:00 AM CDT) Narrative 11/22/2016 12:00 AM CDT Ordered by an unspecified provider. us Historical Provider Final Res ult documented in this encounter Visit Diagnoses Not on filedocumented in this encounter Additional Health Concerns Infection Onset Date Last Indicated Resolved Time COVID: Suspected 07/07/2025 07/07/2025 07/07/2025 11:46 AM PROPERTY CARETAKER documented as of this encounter Care Teams Migratory Worker Relationship Specialty Start Date End Date Tamika Retana MD [address] [facility] [address] [place] [address] PCP - General 08/20/18 Darrick Goodwin MD [address] [facility] [address] [place] [address] Surgeon Cardiothoracic Surgery 01/17/23 Wilner Fan MD [address] [place] [address] Consulting Physician Interventional Cardiology 01/17/23 Eliza Meraz, COUNTER PERSON [address] [place] [address] [address] [place] [address] Organizational Development Director 01/18/23 01/18/23 documented as of this encounter
== END 2025-07-08 13:05 | disposition home or self-care (01) ==
PROVIDERS: PCP Internal Medicine
DX: J20.9 Acute bronchitis, unspecified (principal); J45.901 Unspecified asthma with (acute) exacerbation
CPT/HCPCS: 71046